=== PATIENT | female | born 2000 | race Caucasian/White ===

== ENCOUNTER 2021-06-16 11:00 | Outpatient (CLI) | payer MEDICAID, SELFPAY ==
--- NOTE | 2021-06-16 11:12 | US_ITS ---
WS: [id number] ULTRASOUND BREAST LEFT TECHNIQUE: Ultrasound left breast focused area of concern. CLINICAL INFORMATION: BREAST DRAINAGE;BREAST MASS/LUMP COMPARISON: None. FINDINGS: Ultrasound left breast 11 to 1:00 position. No evidence of cystic or solid suspicious lesions. A few incidental dilated ducts at about the areola. No suspicious findings at for biopsy. US/US breast LT limited* [id number] IMPRESSION: BI-RADS 2 benign Recommend annual screening mammography age 40
== END 2021-06-16 11:01 | disposition home or self-care (01) ==
LOC: RAD 11:06
PROVIDERS: PCP Nurse Practitioner Family; Visit Provider Family Medicine
DX: N64.52 Nipple discharge (principal); N63.20 Unspecified lump in the left breast, unspecified quadrant
CPT/HCPCS: 76642

== ENCOUNTER 2021-06-24 11:53 | Emergency (ER) | payer MEDICAID, SELFPAY ==
[2021-06-24 12:12] VITALS: BP 139/94; PULSE 114; RESP 19; TEMP 37.6; O2SAT 97; BMI 25.1
--- NOTE | 2021-06-24 12:54 | ECG_ITS ---
[facility] ED Test Date: 2021-06-24 Pat Name: Jessica Mandel Department: Room: Gender: Female World Language Teacher: ADOLPH TORRESB: 2000 Requested By: Irma Hauser Order Number: [id number] Brendan MD: Rae Klein M.D. Measurements Intervals [place] Rate: 102 P: 46 ND: 157 QRS: 46 QRSD: 82 T: 31 QT: 326 QTc: 426 Interpretive Statements SINUS TACHYCARDIA NONSPECIFIC T-WAVE ABNORMALITY ABNORMAL RHYTHM ECG Compared to ECG 10/24/2018 17:57:25 T-wave abnormality now present Sinus rhythm no longer present Electronically Signed On 06-25-2021 18:27:41 CDT by Rae Klein M.D. [id number]
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
[2021-06-24 12:57] VITALS: BP 120/96; PULSE 106; RESP 18; O2SAT 100
[2021-06-24] MEDS: sodium chloride 0.9% 1,000 ML 999 ML IV (13:09)
[2021-06-24 13:24] LABS: Basophils # 0.1 10^3/uL (0.0-0.1); Basophils % 0.5 %; Eosinophils # 0.6 10^3/uL (0.0-0.8); Eosinophils % 5.5 %; Hematocrit 44.2 % (37.0-47.0); Hemoglobin 14.4 g/dL (11.5-15.3); Lymphocytes # 1.2 10^3/uL (1.5-6.5); Mean Corpuscular HGB Conc 32.6 g/dL (30.0-36.0); Mean Corpuscular Hemoglobin 29.5 pg (28.0-34.0); Mean Corpuscular Volume 90.6 fl (81-99); Mean Platelet Volume 11.2 fL (7.4-10.4); Monocytes # 0.6 10^3/uL (0.2-0.9); Monocytes % 5.5 %; Neutrophils % 77.3 %; Nucleated Red Blood Cells % 0 %; Platelet Count 191 10^3/cmm (130-400); Red Blood Count 4.88 10^6/uL (4.1-5.3); White Blood Count 10.5 10^3/uL (4.5-13.0)
[2021-06-24 13:35] LABS: HCG, Serum Qual Negative (Negative)
[2021-06-24] MEDS: iohexol 300 mg/mL 100 mL Btl IV (13:38)
--- NOTE | 2021-06-24 13:42 | CT_ITS ---
WS: [id number] CT ABDOMEN AND PELVIS WITH CONTRAST HISTORY: abdominal pain, N/V TECHNIQUE: Imaging performed of the abdomen and pelvis with IV contrast. Single phase imaging of the abdomen. Coronal and sagittal reformats are submitted. All CT scans at [facility] use at least one of these dose optimization techniques: automated exposure control; mA and/or kV adjustment per patient size (includes targeted exams where dose is matched to clinical indication); or iterativ e reconstruction. IV CONTRAST: Omnipaque 300; 95 mL IV. Oral contrast: No DLP: 1907.52 mGy.cm COMPARISON: None available. Lower thorax: Lung bases are clear. Heart is normal size. No hiatal hernia. Liver/biliary system: Normal size with no intrahepatic dilatation. Gallbladder: Normal. No gallstones or wall thickening. No pericholecystic fluid. Pancreas: Normal size pancreas and pancreatic duct. No adjacent inflammation. Spleen: Spleen is slightly enlarged at 14 cm in length. No parenchymal abnormality or fracture. Adrenal glands: Normal. Right kidney: Normal. Left kidney: Normal. Aorta: Normal. Lymphadenopathy: None. Free fluid: None. GI tract: Prior appendectomy. No obstruction or mucosal thickening. Abdominal wall: Unremarkable abdominal wall. No hernia. Pelvis: No free fluid or adenopathy within the pelvis. Mild fluid distention of the endometrium may b e related to the menstrual cycle. Thick wall 17 mm RIGHT ovarian follicle. Bones: Unremarkable. Very inferior ischial tuberosity is not included on this examination. Otherwise bones are negative. CT/CT abdomen pelvis w con* [id number] IMPRESSION: 1. No acute abdominal or pelvic CT findings. 2. Prior appendectomy. 3. No free fluid or mesenteric hematoma. 4. Mild splenomegaly.
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
[2021-06-24 13:43] LABS: Alanine Aminotransferase 27 U/L (0-33); Albumin Level 4.4 g/dL (3.5-5.2); Alkaline Phosphatase 76 IU/L (35-105); Anion Gap 17.8 (5-19); Aspartate Amino Transferase 17 U/L (0-32); Blood Urea Nitrogen 11 mg/dL (6-20); Calcium 9.1 mg/dL (8.5-10.5); Carbon Dioxide 21 mmol/L (22-29); Chloride 102 mmol/L (98-107); Globulin 2.8 g/dL (1.3-4.6); Glomerular Filtration Rate 157.3 mL/min (90-130); Glucose 97 mg/dL (65-115); Lipase 32 U/L (13-60); Osmolality Calculated 283 mOsm/kg (285-295); Potassium 3.8 mmol/L (3.5-5.1); Sodium 137 mmol/L (136-145); Total Bilirubin 0.6 mg/dL (0.15-1.2); Total Protein 7.2 g/dL (6.6-8.7)
[2021-06-24 14:50] VITALS: BP 107/90; PULSE 98; RESP 16; O2SAT 99
[2021-06-24 15:12] LABS: Add Urine Microscopic? NO; Charge for UA Resulting for Rev
[2021-06-24 15:24] LABS: Bilirubin Urine 1+ (Negative); Blood Urine Neg (Negative); Glucose Urine UA Norm (Normal); Ketones Urine Negative (Negative); Leukocyte Esterase Urine Negative (Negative); Nitrate Urine Negative (Negative); Protein Urine Trace (Negative); Specific Gravity, Urine 1.005 (1.005-1.030); Urine Appearance Clear (CLEAR); Urine Color Yellow (Yellow); Urobilinogen Urine 1 mg/dL (Negative); pH Urine 6.5 (5-7)
[2021-06-24 15:25] LABS: Amphetamines Screen Urine Negative (Negative); Barbiturates Screen Urine Negative (Negative); Benzodiazepines Screen Urine Negative (Negative); Cocaine Screen Urine Negative (Negative); Opiate Screen Urine Negative (Negative); PCP Screen Urine Negative (Negative); THC Screen Urine Positive (Negative)
[2021-06-24 16:05] VITALS: RESP 16
== END 2021-06-24 16:07 | disposition home or self-care (01) ==
PROVIDERS: Emergency Provider Physician Assistant; PCP Nurse Practitioner Family
DX: G89.29 Other chronic pain (principal); M54.2 Cervicalgia; M54.9 Dorsalgia, unspecified; R10.9 Unspecified abdominal pain; R11.2 Nausea with vomiting, unspecified
CPT/HCPCS: 72072; 72100; 72125; 74177; 80053; 80306; 81003; 83690; 84703; 85025; 93005; 96360; 99283; J7030; Q9967

== ENCOUNTER 2021-09-13 14:26 | Emergency (ER) | payer MEDICAID, SELFPAY ==
[2021-09-13 15:07] VITALS: BP 131/89; PULSE 80; RESP 18; TEMP 36.8; O2SAT 99; BMI 28.1
--- NOTE | 2021-09-13 16:28 | ED_ITS ---
HPI - Female Genitourinary General: Chief complaint: Vaginal Bleeding Stated complaint: Vaginal Bleeding, 6 Wks Preg Time Seen by Provider: 09/13/21 16:04 History of Present Illness: HPI Narrative: 20-year-old female who is G2, P1 approximately 6 weeks gestation. She states about 3 days ago she started having vaginal bleeding is gotten progressively worsened. She has a lot of pelvic cramping with it as well she denies any dysuria urgency or frequency. Previous resulted in delivery around 30 to 32 weeks child that went on to be quite healthy. Patient has not had any lightheadedness or dizziness denies any dysuria urgency or frequency denies any medication vomiting times Emesis. MD elicited complaint: vaginal bleeding Onset (ago): day(s) Severity: mild Quality of pain: cramping Consistency: constant Vaginal bleeding: moderate Exacerbating factors: none Relieving factors: none Associated symptoms: Reports vaginal bleeding; Deny abdominal pain, short of breath, fevers/chills, headache(s), nausea, rash, seizures, syncope, vaginal discharge or weakness Treatment prior to arrival: none Patient : Yes Date of Last Menstrual Period: 07/26/21 Review of Systems Const: Denies: fever(s), chills, body aches, change in appetite, fatigue or malaise ENMT: Denies: throat pain, ear or mastoid pain, nasal discharge or nasal congestion Card: Denies: syncope Resp: Denies: dyspnea, productive cough or non-productive cough GI: Denies: abdominal pain or nausea : Denies: vaginal discharge Skin/Breast: Denies: rash or pruritus Neuro: Denies: headache(s) [facility] ED Female Reproductive History: Date of last menstrual period: 07/26/21 Physical Exam Const: COMMON NORMALS: no acute distress GENERAL APPEARANCE: cooperative and comfortable ORIENTATION/CONSCIOUSNESS: Yes awake, Yes oriented to person, Yes oriented to place and Yes oriented to time HENMT: COMMON NORMALS: normocephalic, atraumatic and hearing grossly normal bilaterally HEAD & SCALP: normocephalic and atraumatic Neck/C-Spine: COMMON NORMALS: no JVD Resp: COMMON NORMALS: normal respiratory effort, No retractions, No use of accessory muscles and clear to auscultation bilaterally AUSCULTATION: clear to auscultation bilaterally Cardio: COMMON NORMALS: no JVD, regular rate, regular rhythm and No murmurs present (Cardio) RATE: regular rate RHYTHM: regular rhythm GI: COMMON NORMALS: Soft to palpation and No hepatosplenomegaly present AUSCULTATION: Yes normoactive bowel sounds PALPATION: Yes Soft to palpation, No Tenderness to palpation present (GI), No Guarding due to palpation present (GI) and Yes No hepatosplenomegaly present : SPECULUM EXAM - VAGINA: Yes vaginal bleeding OB/EXTERNAL & SPECULUM: vaginal bleeding Extremity: COMMON NORMALS: normal to inspection, capillary refill normal, no clubbing, cyanosis or edema, no calf tenderness and no pedal edema Neuro: SENSORIUM/ORIENTATION: Yes oriented to person, Yes oriented to place and Yes oriented to time Skin: COMMON NORMALS: no rashes or lesions noted GENERAL SKIN EXAM: no rashes or lesions noted Course Vital Signs: Vital signs: Vital Signs Temperature 98.2 F 09/13/21 15:07 Pulse Rate 80 09/13/21 15:07 Respiratory Rate 18 09/13/21 15:07 Blood Pressure 131/89 09/13/21 15:07 Pulse Oximetry 99 09/13/21 15:07 MDM - Female MDM Narrative: Medical decision making narrative: Serum quantitative beta-hCG is less than 1. Discussed with the patient suspect she was not . Given the usual breakdown of beta-hCG over time after a miscarriage either she was very very early and miscarried sometime ago or more likely was not at all. She states she had several positive test 1 week ago which does not correspond well with her quantitative beta-hCG today. Recommend she follow- up with her primary care doctor for now just observe if bleeding worsens or continues can return if needed. Lab Data: Labs: Lab Results 09/13/21 09/13/21 09/13/21 16:45 16:45 16:45 WBC 11.5 10^3/uL 10^3 /uL (4.5-13.0) RBC 4.70 10^6/uL 10^6 /uL (4.1-5.3) Hgb 14.3 g/dL g/dL (11.5-15.3) Hct 43.4 % % (37.0-47.0) MCV 92.3 fl fl (81-99) MCH 30.4 pg pg (28.0-34.0) MCHC 32.9 g/dL g/dL (30.0-36.0) RDW 12.2 % % (12.1-15.1) Plt Count 271 10^3/cmm 10^3 /cmm (130-400) MPV 10.6 fL H fL (7.4-10.4) Neut % (Auto) 56.1 % % Lymph % (Auto) 30.0 % % Haralson % (Auto) 7.5 % % Eos % (Auto) 5.5 % % Baso % (Auto) 0.6 % % Neut # (Auto) 6.48 10^3/uL 10^3 /uL (1.8-8.0) Lymph # (Auto) 3.5 10^3/uL 10^3/ uL (1.5-6.5) [place]on # (Auto) 0.9 10^3/uL 10^3/ uL (0.2-0.9) Eos # (Auto) 0.6 10^3/uL 10^3/ uL (0.0-0.8) Baso # (Auto) 0.1 10^3/uL 10^3/ uL (0.0-0.1) Nucleated RBC % (a uto) 0 % % Nucleated RBCs # 0.0 /100WBC /100W BC Sodium 138 mmol/L mmol/L (136-145) Potassium 3.9 mmol/L mmol/L (3.5-5.1) Chloride 101 mmol/L mmol/L (98-107) Carbon Dioxide 23 mmol/L mmol/L (22-29) Anion Gap 17.9 (5-19) BUN 11 mg/dL mg/dL (6-20) Creatinine 0.5 mg/dL mg/dL (0.5-0.9) GFR Calculation 157.3 mL/min H mL /min (90-130) Glucose 78 mg/dL mg/dL (65-115) Calculated Osmolal ity 284 mOsm/kg L mOs m/kg (285-295) Calcium 9.9 mg/dL mg/dL (8.5-10.5) Total Bilirubin 0.2 mg/dL mg/dL (0.15-1.2) AST 18 U/L U/L (0-32) ALT 20 U/L U/L (0-33) Alkaline Phosphata se 72 IU/L IU/L (35-105) Total Protein 8.2 g/dL g/dL (6.6-8.7) Albumin 4.6 g/dL g/dL (3.5-5.2) Globulin 3.6 g/dL g/dL (1.3-4.6) Ser , Cody i-Qnt 0.83 mIU/mL mIU/m L Urine Color Urine Appearance Urine pH Ur Specific Gravit y Urine Protein Urine Glucose (UA) Urine Ketones Urine Blood Urine Nitrate Urine Bilirubin Urine Urobilinogen Ur Leukocyte Shelby ase Urine RBC Urine WBC Ur Squamous Epith Cells Amorphous Sediment Urine Bacteria Rho(D) Type Positive 09/13/21 17:30 WBC RBC Hgb Hct MCV MCH MCHC RDW Plt Count MPV Neut % (Auto) Lymph % (Auto) [place] % (Auto) Eos % (Auto) Baso % (Auto) Neut # (Auto) Lymph # (Auto) [place] # (Auto) Eos # (Auto) Baso # (Auto) Nucleated RBC % (a uto) Nucleated RBCs # Sodium Potassium Chloride Carbon Dioxide Anion Gap BUN Creatinine GFR Calculation Glucose Calculated Osmolal ity Calcium Total Bilirubin AST ALT Alkaline Phosphata se Total Protein Albumin Globulin Ser , Cody i-Qnt Urine Color Dark yellow (Yellow) Urine Appearance Clear (CLEAR) Urine pH 6 (5-7) Ur Specific Gravit y 1.020 (1.005-1.030) Urine Protein Neg (Negative) Urine Glucose (UA) Norm (Normal) Urine Ketones Negative (Negative) Urine Blood 3+ H (Negative) Urine Nitrate Negative (Negative) Urine Bilirubin Neg (Negative) Urine Urobilinogen 1 mg/dL H mg/dL (Negative) Ur Leukocyte Shelby ase Negative (Negative) Urine RBC 40-50 /hpf H /hpf (0-2) Urine WBC Rare /hpf /hpf (0-5) Ur Squamous Epith Cells Rare /hpf /hpf (0-5) Amorphous Sediment Not Reportable Urine Bacteria 1+ /hpf H /hpf (NONE) Rho(D) Type Discharge Plan Discharge Patient Disposition: Home Clinical Impression: Menometrorrhagia Condition: Stable Prescriptions: No Action Tylenol Extra Strength 500 mg Tablet 1,000 - 1,500 mg PO Q6H PRN (Reason: Pain) RF: 0 Motion Sickness 25 mg Tablet 25 mg PO PRN RF: 0 diclofenac sodium 50 mg tablet,delayed release (DR/EC) 50 mg PO Q12H PRN (Reason: pain) Qty: 20 RF: 0 Zofran 4 mg tablet 4 mg PO Q6H PRN (Reason: nausea and vomiting) Qty: 14 RF: 0 Discharge Orders: Discharge ED (Routine); Ordered 09/13/21 Ordered By: Reuben Birch Referrals: Melissa Jaquez FNP [Primary Care Provider] - Discharge Diet: Usual diet Discharge Activity: Resume usual activity Patient Instructions: Opioid Safety Activity Restrictions/Additional Instructions: Recheck a hemoglobin is her primary care doctor in 2 days. Coding Level of Care Code ED Freight Sorter for Deedee Dawson
--- NOTE | 2021-09-13 16:35 | USR_ITS ---
PROCEDURE INFORMATION: Exam: US Pelvis, Transvaginal Exam date and time: 09/13/2021 4:35 PM Age: 20 years old Clinical indication: Other: Thinks she is and bleeding; Additional info: Confiem intrauterine preg TECHNIQUE: Imaging protocol: Real-time transvaginal pelvic ultrasound with image documentation. Transvaginal imaging was used for better evaluation of the endometrium, adnexa, and/or cervix. COMPARISON: US OB >14 Weeks [id number] 07/17/2019 10:55 AM FINDINGS: Uterus: The uterus measures 8.3 x 6.1 cm. No intrauterine gestation is seen. Negative for uterine mass. The endometrial stripe measures 7 mm in thickness. Multiple nabothian cysts are noted in the cervix. Right adnexa: The right ovary measures 3.4 x 1.5 x 2.2 cm No suspicious mass. Normal ovarian blood flow. Left adnexa: The left ovary measures 3.7 x 1.9 x 2.3 cm. No suspicious mass. Normal ovarian blood flow. Intraperitoneal space: Trace pelvic free fluid, likely physiologic. US/US transvaginal [id number] IMPRESSION: 1. No evidence of intrauterine . Findings could relate to early gestational age in the setting of a positive test. Could consider trending beta hCG and/or repeat ultrasound to evaluate for viability. 2. No acute sonographic abnormalities of the pelvis. Radiation Dose CTDIVOL = (mGy): DLP = (mGy-cm)
[2021-09-13 16:51] LABS: Basophils # 0.1 10^3/uL (0.0-0.1); Basophils % 0.6 %; Eosinophils # 0.6 10^3/uL (0.0-0.8); Eosinophils % 5.5 %; Hematocrit 43.4 % (37.0-47.0); Hemoglobin 14.3 g/dL (11.5-15.3); Lymphocytes # 3.5 10^3/uL (1.5-6.5); Mean Corpuscular HGB Conc 32.9 g/dL (30.0-36.0); Mean Corpuscular Hemoglobin 30.4 pg (28.0-34.0); Mean Corpuscular Volume 92.3 fl (81-99); Mean Platelet Volume 10.6 fL (7.4-10.4); Monocytes # 0.9 10^3/uL (0.2-0.9); Monocytes % 7.5 %; Neutrophils # 6.48 10^3/uL (1.8-8.0); Neutrophils % 56.1 %; Nucleated Red Blood Cells % 0 %; Platelet Count 271 10^3/cmm (130-400); Red Cell Distribution Width 12.2 % (12.1-15.1); White Blood Count 11.5 10^3/uL (4.5-13.0)
[2021-09-13 17:20] LABS: HCG Quantitative 0.83 mIU/mL
[2021-09-13 17:41] LABS: Alanine Aminotransferase 20 U/L (0-33); Albumin Level 4.6 g/dL (3.5-5.2); Alkaline Phosphatase 72 IU/L (35-105); Blood Urea Nitrogen 11 mg/dL (6-20); Calcium 9.9 mg/dL (8.5-10.5); Carbon Dioxide 23 mmol/L (22-29); Chloride 101 mmol/L (98-107); Globulin 3.6 g/dL (1.3-4.6); Glomerular Filtration Rate 157.3 mL/min (90-130); Glucose 78 mg/dL (65-115); Osmolality Calculated 284 mOsm/kg (285-295); Sodium 138 mmol/L (136-145); Total Bilirubin 0.2 mg/dL (0.15-1.2); Total Protein 8.2 g/dL (6.6-8.7)
[2021-09-13 17:43] LABS: Anion Gap 17.9 (5-19); Aspartate Amino Transferase 18 U/L (0-32); Potassium 3.9 mmol/L (3.5-5.1)
[2021-09-13 18:05] LABS: Urine Appearance Clear (CLEAR); Urine Color Dark Yellow (Yellow); pH Urine 6 (5-7)
[2021-09-13 18:06] LABS: Add Urine Microscopic? YES; Bacteria Urine 1+ /hpf; Bilirubin Urine Neg (Negative); Blood Urine 3+ (Negative); Glucose Urine UA Norm (Normal); Ketones Urine Negative (Negative); Leukocyte Esterase Urine Negative (Negative); Nitrate Urine Negative (Negative); Protein Urine Neg (Negative); RBC Urine 40-50 /hpf (0-2); Squamous Epithelial Cell Urine RARE /hpf (0-5); Urobilinogen Urine 1 mg/dL (Negative); WBC Urine RARE /hpf (0-5)
[2021-09-13 18:07] LABS: Add Urine Culture? Yes
== END 2021-09-13 18:04 | disposition home or self-care (01) ==
PROVIDERS: Physician Assistant; Emergency Provider Family Medicine; PCP Nurse Practitioner Family
DX: N92.1 Excessive and frequent menstruation with irregular cycle (principal)
CPT/HCPCS: 76830; 80053; 81001; 84702; 85025; 87086; 93976; 99283

== ENCOUNTER 2022-03-21 09:17 | Emergency (ER) | payer OTHER, SELFPAY ==
[2022-03-21 09:22] VITALS: BP 134/94; PULSE 110; RESP 16; O2SAT 99; BMI 29.9
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
[2022-03-21 09:57] VITALS: BP 134/94; O2SAT 98
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
[2022-03-21 10:30] VITALS: BP 116/65; PULSE 71; RESP 17; O2SAT 97
[2022-03-21 11:20] VITALS: BP 100/79; PULSE 90; RESP 14; O2SAT 98
[2022-03-21 11:21] VITALS: BP 100/79; PULSE 90; RESP 14; O2SAT 98
== END 2022-03-21 11:20 | disposition home or self-care (01) ==
PROVIDERS: Emergency Provider Physician Assistant; PCP Nurse Practitioner Family
DX: O9A.212 Injury, poisoning and certain other consequences of external causes complicating pregnancy, second trimester (principal); S13.9XXA Sprain of joints and ligaments of unspecified parts of neck, initial encounter; S29.012A Strain of muscle and tendon of back wall of thorax, initial encounter; V89.2XXA Person injured in unspecified motor-vehicle accident, traffic, initial encounter; Y92.410 Unspecified street and highway as the place of occurrence of the external cause; Z3A.24 24 weeks gestation of pregnancy
CPT/HCPCS: 72040; 72072; 72125; 76805; 99283

== ENCOUNTER 2022-04-18 14:00 | Outpatient (CLI) | payer OTHER, SELFPAY ==
[2022-04-18] VITALS (8 sets, daily range): BP systolic 107–129; BP diastolic 55–77; PULSE 90–116; TEMP 36.2; BMI 30.2
--- NOTE | 2022-04-18 14:43 | US_ITS ---
WS: [id number] Transvaginal obstetrical ultrasound. HISTORY: Evaluate cervical length. Transvaginal imaging is submitted. The cervical length is normal at 4.2 cm. There is no insufficiency or cervical funneling. Study was limited to the cervix. US/US OB transvaginal [id number] IMPRESSION: No cervical insufficiency.
[2022-04-18] MEDS: lactated ringers 1,000 ML 999 ML IV (15:03)
[2022-04-18 15:29] LABS: Actim Prom Negative; Urine Appearance Hazy (CLEAR); Urine Color Yellow (Yellow)
[2022-04-18 15:30] LABS: Bilirubin Urine Neg (Negative); Blood Urine Neg (Negative); Glucose Urine UA Norm (Normal); Ketones Urine 1+ (Negative); Leukocyte Esterase Urine Negative (Negative); Nitrate Urine Negative (Negative); Protein Urine Neg (Negative); Specific Gravity, Urine 1.015 (1.005-1.030); Urobilinogen Urine Norm (Negative); pH Urine 7 (5-7)
[2022-04-18 15:50] LABS: Add Urine Microscopic? YES
[2022-04-18 15:55] LABS: Mucus Urine 3+ /hpf
[2022-04-18 15:56] LABS: Bacteria Urine 2+ /hpf; RBC Urine 0-4 /hpf (0-2)
[2022-04-18 15:57] LABS: Add Urine Culture? No; Amorphous Sediment Urine 3+ /hpf; WBC Urine 0-4 /hpf (0-5)
== END 2022-04-18 16:34 | disposition home or self-care (01) ==
LOC: OPOB 14:07 → OBGYN 14:08
PROVIDERS: PCP Nurse Practitioner Family; Visit Provider Family Medicine
DX: O26.899 Other specified pregnancy related conditions, unspecified trimester (principal); Z3A.00 Weeks of gestation of pregnancy not specified; R10.9 Unspecified abdominal pain; M54.9 Dorsalgia, unspecified
CPT/HCPCS: 76817; 81001; 84112; 99211

== ENCOUNTER 2022-05-11 11:41 | Outpatient (CLI) | payer MEDICAID, SELFPAY ==
[2022-05-11 11:30] VITALS: BMI 29.7
[2022-05-11 11:52] VITALS: BP 112/67; PULSE 98; TEMP 36.3
[2022-05-11 12:07] VITALS: BP 94/55; PULSE 90
[2022-05-11 12:21] LABS: Actim Prom Negative
[2022-05-11 12:22] VITALS: BP 110/67; PULSE 92
[2022-05-11 12:26] LABS: Bilirubin Urine Neg (Negative); Blood Urine Neg (Negative); Glucose Urine UA Norm (Normal); Ketones Urine Negative (Negative); Leukocyte Esterase Urine Negative (Negative); Nitrate Urine Negative (Negative); Protein Urine Neg (Negative); Specific Gravity, Urine 1.005 (1.005-1.030); Urine Appearance Clear (CLEAR); Urine Color Yellow (Yellow); Urobilinogen Urine Norm (Negative); pH Urine 7 (5-7)
[2022-05-11 12:27] LABS: Add Urine Culture? Yes; Bacteria Urine 2+ /hpf; Hyaline Casts Urine 0-4 /lpf; Mucus Urine 2+ /hpf; RBC Urine 0-4 /hpf (0-2); WBC Urine 0-4 /hpf (0-5)
[2022-05-11 12:46] VITALS: BP 110/67; PULSE 92; RESP 16; TEMP 36.3
== END 2022-05-11 12:40 | disposition home or self-care (01) ==
LOC: OPOB 11:42 → OBGYN 11:43
PROVIDERS: PCP Nurse Practitioner Family; Visit Provider Family Medicine
DX: O26.899 Other specified pregnancy related conditions, unspecified trimester (principal); Z3A.00 Weeks of gestation of pregnancy not specified; N89.8 Other specified noninflammatory disorders of vagina
CPT/HCPCS: 59025; 81001; 83986; 84112; 87086; 99211

== ENCOUNTER 2022-05-17 21:52 | Outpatient (CLI) | payer MEDICAID, SELFPAY ==
[2022-05-17 22:27] VITALS: BP 93/52; PULSE 96
[2022-05-17 22:30] VITALS: RESP 16
[2022-05-17 22:41] VITALS: BP 94/59; PULSE 96
[2022-05-17] MEDS: terbutaline 1 mg/mL INJ 0.25 MG SUBCUT (22:46)
[2022-05-17 22:57] VITALS: BP 111/65; PULSE 103
[2022-05-17 22:58] VITALS: BMI 30.8
[2022-05-17] MEDS: hyDROXYzine 25 mg Capsule 50 MG PO (23:25)
[2022-05-17] MEDS: acetaminophen 500 mg Tablet 1000 MG PO (23:25)
[2022-05-17 23:33] LABS: Add Urine Culture? Yes; Amorphous Sediment Urine 2+ /hpf; Bacteria Urine 4+ /hpf; Bilirubin Urine Neg (Negative); Blood Urine Neg (Negative); Glucose Urine UA Norm (Normal); Ketones Urine Negative (Negative); Leukocyte Esterase Urine Trace (Negative); Mucus Urine TRACE /hpf; Nitrate Urine Negative (Negative); Protein Urine Neg (Negative); RBC Urine 0-4 /hpf (0-2); Specific Gravity, Urine 1.015 (1.005-1.030); Urine Appearance SL Hazy (CLEAR); Urine Color Yellow (Yellow); Urobilinogen Urine Norm (Negative); pH Urine 6 (5-7)
[2022-05-17 23:35] LABS: Amphetamines Screen Urine Negative (Negative); Barbiturates Screen Urine Negative (Negative); Benzodiazepines Screen Urine Negative (Negative); Cocaine Screen Urine Negative (Negative); Opiate Screen Urine Negative (Negative); PCP Screen Urine Negative (Negative); THC Screen Urine Negative (Negative)
== END 2022-05-17 23:27 | disposition home or self-care (01) ==
LOC: OPOB 22:02 → OBGYN 23:11
PROVIDERS: PCP Nurse Practitioner Family; Visit Provider Family Medicine
DX: O26.899 Other specified pregnancy related conditions, unspecified trimester (principal); Z3A.00 Weeks of gestation of pregnancy not specified; R10.9 Unspecified abdominal pain
CPT/HCPCS: 59025; 80306; 81001; 87086; 99211; J3105

== ENCOUNTER 2022-06-03 15:24 | Outpatient (CLI) | payer MEDICAID, SELFPAY ==
--- NOTE | 2022-06-03 | US_ITS ---
WS: [id number] LIMITED OBSTETRICAL ULTRASOUND HISTORY: GROWTH RETARDATION COMPARISON: 04/18/2022, 03/21/2022 Presentation: Breech Cervix: Closed and normal length. Placenta: Anterior, no previa or abruption. Grade: 1 HEART: FHR of 131 BPM. measurements: BPD = 8.1 cm = 32w5d; 26 percentile HC = 29.6 cm = 32w5d; 8thpercentile AC = 28.8 cm = 32w6d; 39th percentile FL = 6.5 cm = 33w5d; 49th percentile NEEMA: 16.1 cm EFW: 2111 g; 53rd percentile %. AGA by ultrasound: 33w0d NISHA by ultrasound: 07/22/2022 Measurements are internally concordant. No prior ultrasound available to evaluate for interval approp riate growth. US/US OB limited [id number] IMPRESSION: 1. Single intrauterine gestation of 33 weeks 0 days with an EDC of 07/22/2022. 2. Percentiles an estimated weight are based upon the provided LMP. 3. No prior ultrasound to evaluate for interval appropriate growth. 4. Head circumference at the 8th percentile. 5. Normal amniotic fluid index.
== END 2022-06-03 15:25 | disposition home or self-care (01) ==
LOC: RAD 15:26
PROVIDERS: PCP Nurse Practitioner Family; Visit Provider Family Medicine
DX: O36.5990 Maternal care for other known or suspected poor fetal growth, unspecified trimester, not applicable or unspecified (principal)
CPT/HCPCS: 76815

== ENCOUNTER 2022-06-27 15:09 | Outpatient (CLI) | payer MEDICAID, SELFPAY ==
[2022-06-27 15:20] VITALS: BP 129/81; PULSE 120
[2022-06-27 15:21] VITALS: TEMP 36.5
[2022-06-27 16:13] LABS: Actim Prom Negative
[2022-06-27 16:14] VITALS: BP 113/65; PULSE 106
--- NOTE | 2022-06-27 16:15 | PC.NURSE ---
Pt reports being unsure whether she is having contractions or not. She reports with her last baby her water broke at 31 weeks and that she didn't know she was having contractions. Educated pt that contractions may start in the lower back and wrap around to the front of the abdomen, with contractions the abdomen will tighten and become firm and release. Educated pt on how to time contractions. Pt reports she has been having lower back pain and abdominal tightening, but does not know how often it occurs. Educated pt about the monitor and that the TOCO with car pick up driver contractions if she is having any. Pt reports that she had not felt 10 kicks in 2 hours. Pt asked if we could tell on the monitor if her baby was moving. Educated pt that the monitor does not show movement but that occasionally we can hear baby move on the US. Educated pt that her baby's heart looked great and that her baby was reactive. Explained that that meant that baby was well oxygenated and was not showing any signs of distress. Pt asked why she couldn't feel her baby move all the time. She states that her baby moves more in the night time than the day time. Explained that we recommend drinking a large glass of cold water and lying down on your left side in a quiet space with no distractions and concentrate on feeling baby move.
== END 2022-06-27 16:33 | disposition home or self-care (01) ==
LOC: OPOB 15:09 → OBGYN 15:10
PROVIDERS: PCP Nurse Practitioner Family; Visit Provider Family Medicine
DX: O36.8190 Decreased fetal movements, unspecified trimester, not applicable or unspecified (principal); Z3A.00 Weeks of gestation of pregnancy not specified
CPT/HCPCS: 84112

== ENCOUNTER 2022-07-12 06:11 | Inpatient (IN) | payer MEDICAID, SELFPAY ==
[2022-07-11] VITALS (9 sets, daily range): BP systolic 100–130; BP diastolic 58–79; PULSE 95–109; RESP 16; TEMP 35.7; BMI 31.3
[2022-07-11 21:33] LABS: Basophils # 0.1 10^3/uL (0.0-0.1); Basophils % 0.5 %; Eosinophils # 0.7 10^3/uL (0.0-0.8); Hematocrit 34.4 % (37.0-47.0); Hemoglobin 11.1 g/dL (11.5-15.3); Lymphocytes # 4.4 10^3/uL (0.8-4.8); Lymphocytes % 24.2 %; Mean Corpuscular HGB Conc 32.3 g/dL (30.0-36.0); Mean Corpuscular Hemoglobin 30.2 pg (28.0-34.0); Mean Corpuscular Volume 93.7 fl (81-99); Mean Platelet Volume 11.8 fL (7.4-10.4); Monocytes # 1.1 10^3/uL (0.2-0.9); Neutrophils # 11.72 10^3/uL (1.8-7.7); Neutrophils % 63.8 %; Nucleated Red Blood Cells % 0 %; Platelet Count 236 10^3/cmm (130-400); Red Blood Count 3.67 10^6/uL (4.1-5.3); Red Cell Distribution Width 13.5 % (12.1-15.1); White Blood Count 18.3 10^3/uL (4.0-10.0)
[2022-07-11] MEDS: lactated ringers 1,000 ML 999 ML IV (23:10)
[2022-07-12] VITALS (126 sets, daily range): BP systolic 92–129; BP diastolic 50–87; PULSE 47–112; TEMP 36.1–36.7; O2SAT 93–98
[2022-07-12] MEDS: lactated ringers 1,000 ML 999 ML IV (00:12)
--- NOTE | 2022-07-12 00:35 | ANES.PREANE2 ---
Pre-Anesthetic Assessment Height/Weight: Height 1.7 m Weight 90.718 kg Temp Pulse Resp BP O2 Del Method 96.3 F L 93 16 124/60 07/11/22 20:39 07/12/22 00:23 07/11/22 22:23 07/12/22 00:23 07/11/22 22:23 Preop Diagnosis: labor epidural Familial anesthetic complications: none Was Beta Fartun taken within 24 hours: N/A Was Clonidine taken within 24 hours: N/A Last Intake: 20:00 Social Tobacco and No alcohol 0.5 pack(s) per day 7 pack years Exam alert, oriented x 3, clear to auscultation bilaterally and regular rate & rhythm Airway Submandibular: within normal limits Cervical ROM: within normal limits Mallampati: Class I Dentition: full (tongue ring) Pulmonary None reported CV/HEM None reported None reported Hepatic None reported GI Gastroesophageal Reflux Disease () Metabolic None reported Musc/skel Lower Back Pain (no injury) Neuropsych Anxiety, Bipolar and Depression Anesthetic Plan ASA status: 2 Anesthesia: Regional (specify below) (epidural) Medications/Allergies Home Medications Medication Instructions Recorded Confirmed Last Taken Type No Known Home Medications 05/17/22 07/11/22 Unknown History Allergies Allergy/AdvReac Type Severity Reaction Status Date / Time No Known Allergies Allergy Verified 07/11/22 23:11 Current Medications Generic Name Dose Route Start Last Admin Trade Name Freq PRN Reason Stop Dose Admin Lactated Ringer's 1,000 mls @ 999 mls/hr 07/11/22 22:25 07/12/22 00:12 Lactated Ringers IV 999 mls/hr .Q1H1M PRN Administration See label comments PFSH Anesthesia Female Reproductive History Date of last menstrual period: 07/26/21 : 2 Data Anesthesia : 07/11/22 20:50 Short CBC 07/11/22 Range/Units 20:50 WBC 18.3 H (4.0-10.0) 10^3/uL Hgb 11.1 L (11.5-15.3) g/dL Hct 34.4 L (37.0-47.0) % MCV 93.7 (81-99) fl Plt Count 236 (130-400) 10^3/cmm Neut % (Auto) 63.8 % Neut # (Auto) 11.72 H (1.8-7.7) 10^3/uL Cardiac Studies: No Data to Display
[2022-07-12] MEDS: dextrose 5%-lactated ringers 1,000 ML 125 ML IV ×2 (01:15→09:28)
--- NOTE | 2022-07-12 01:23 | ANES.PROC ---
Anesthesia Procedures Procedure/Date: 07/12/22 Epidural: Time Out Performed: Yes Consents Signed: Procedure Consent and NPO Consent Consent: requested by attending/covering physician, from patient, risks and benefits reviewed and patient agrees to proceed Lumbar Level: L3-L4 Epidural position: sitting Epidural procedure: sterile prep of area (betadine), 1% lidocaine to numb the area (3ml), 18 g needle, negative for paresthesia passed, neg for paresthesia, test dose given (2% lidocaine PF with epi 1:200,000 PF 3ml neg and 2ml given), 0.2% Ropivacaine bolus ml (5ml), placed PCEA, no systemic response, sterile dressing applied, L.U.D. no apparent complications and 0.2% Ropiavacaine @ mls/hr (13ml/hr)
[2022-07-12] MEDS: oxytocin 30 UNIT/500 ML BAG IV (01:47)
[2022-07-12] MEDS: ondansetron 2 mg/ML SDV 2 mL 4 MG IVP (14:13)
[2022-07-12] MEDS: ibuprofen 800 mg tablet PO ×2 (15:09→20:04)
[2022-07-12] MEDS: acetaminophen 325 mg Tablet 650 MG PO ×2 (16:36→22:41)
[2022-07-12] MEDS: docusate sodium 100 mg Capsule PO (17:35)
--- NOTE | 2022-07-12 17:56 | PM.OPHPUD ---
Labor & Delivery H&P Update Date of Procedure: July 12, 2022 Date H&P Performed: 07/06/22 Admission Diagnosis: Preop diagnosis: labor
--- NOTE | 2022-07-12 17:57 | P.PCNOB_ITS ---
Delivery Note: Date of delivery: July 12, 2022 Estimated blood loss (mL): 150 Pre-Delivery Course: This is a 21-year-old -1-0-1 who initially had care starting in [place]. She transferred care to [facility] at 25 weeks gestation. She is blood type O+ antibody negative, hepatitis B surface antigen nonreactive, hepatitis C antibody nonreactive, HIV nonreactive, rubella nonimmune, GC chlamydia negative, GBS negative, she failed the 1 hour glucose tolerance test at 152. She refused the 3-hour glucose tolerance test and chose instead to do 4 times daily Accu-Cheks. She was therefore considered diet-controlled gestational diabetes mellitus. She would not bring her blood sugar logs to clinic but would report normal sugars. Her first delivery was 32 weeks premature but she refused Milena injections for this . She also reported that she was told that the baby was growing small earlier in the but her follow-up growth ultrasound was within normal limits. She did continue to smoke during the . Delivery: This is a 21-year-old G2, P1 at 39 weeks 1 day gestation who was admitted for an elective induction. Cervix was favorable and she was started on Pitocin. She received an epidural for pain management. She had artificial rupture of membranes with clear fluid. She had a normal spontaneous vaginal delivery of a viable female infant weight 6 pounds 9 ounces, Apgars 6 7 and 9. The was delivered precipitously. Her head was out as soon as I entered the room and I was unable to put on gloves. The was delivered atraumatically with bulb suction of the mouth and nares at delivery. The infant was placed on the mother's chest. The cord was clamped and cut. The placenta was delivered grossly intact and normal to inspection. There were no lacerations. Coding Level of Care Code Acute Exchange Consultant for Deedee Dawson
[2022-07-12] MEDS: benzocaine-menthol 78 gm Canister 1 SPRAY TOPICAL (19:24)
[2022-07-13] VITALS (7 sets, daily range): BP systolic 99–129; BP diastolic 61–81; PULSE 76–100; RESP 17–18; TEMP 35.7–36.9; O2SAT 99
[2022-07-13 00:06] LABS: Hematocrit 29.9 % (37.0-47.0); Hemoglobin 9.8 g/dL (11.5-15.3); Mean Corpuscular HGB Conc 32.8 g/dL (30.0-36.0); Mean Corpuscular Hemoglobin 30.8 pg (28.0-34.0); Platelet Count 196 10^3/cmm (130-400); Red Blood Count 3.18 10^6/uL (4.1-5.3); Red Cell Distribution Width 13.4 % (12.1-15.1); White Blood Count 19.4 10^3/uL (4.0-10.0)
[2022-07-13] MEDS: alum-mag-hydroxide-sime 30 mL UDC PO (01:41)
--- NOTE | 2022-07-13 08:29 | ANE.PACU2 ---
Inpatient post-anesthesia follow up: Airway intact: Yes Vital signs: Temperature 96.3 F Pulse Rate 77 Respiratory Rate 16 Blood Pressure 106/67 Pulse Oximetry 96 Oxygen Delivery Me thod Room Air Oxygen Flow Rate Fraction of Inspir ed Oxygen Hydration adequate: Yes Nausea and vomiting: No Pain level: 2 Mental status: Baseline
[2022-07-13] MEDS: docusate sodium 100 mg Capsule PO (10:15)
[2022-07-13] MEDS: prenatal vitamin Capsule 1 CAP PO (10:15)
[2022-07-13] MEDS: ibuprofen 800 mg tablet PO ×2 (10:16→14:36)
--- NOTE | 2022-07-13 17:29 | PM.DCS ---
Discharge Providers Date of Admission: 07/12/22 06:11 Date of Discharge: July 13, 2022 Attending Provider at Admission: Carolann Gusman MD Attending Provider at Discharge: Carolann Gusman MD Primary Care Provider: Melissa Jaquez Reason for Visit Reason for Visit: IOL Hospital Course Hospital Course This is a 21-year-old G2 now P2 who was admitted for an elective induction at 39 weeks 1 day gestation. She had a normal spontaneous vaginal delivery of a viable female . Mother did well after delivery. She was ambulating, tolerating a regular diet, had average vaginal bleeding and was requesting discharge home Physical Exam Narrative: Alert and oriented, sitting up alert and oriented, sitting up in bed, heart regular rate and rhythm, lungs clear to auscultation bilaterally, abdomen soft nontender, fundus firm U- 2, extremities have no calf tenderness. Urinary Catheter Management: Lambert Latex: Cath Placed During This Visit: yes, but has since been removed by the nurse Reason for Continuing Indwelling Catheter: Not indwelling catheter Urinary Catheter Date of Insertion: 07/12/22 Urinary Catheter Time of Insertion: 01:20 Date Urinary Catheter Removed: 07/12/22 Time Urinary Catheter Discontinued: 12:00 Discharge Data Studies Completed and Pending Laboratory Results WBC 19.4 10^3/uL (4.0-10.0) H 07/12/22 23:29 RBC 3.18 10^6/uL (4.1-5.3) L 07/12/22 23:29 Hgb 9.8 g/dL (11.5-15.3) L 07/12/22 23:29 Hct 29.9 % (37.0-47.0) L 07/12/22 23:29 MCV 94.0 fl (81-99) 07/12/22 23:29 MCH 30.8 pg (28.0-34.0) 07/12/22 23:29 MCHC 32.8 g/dL (30.0-36.0) 07/12/22 23:29 RDW 13.4 % (12.1-15.1) 07/12/22 23:29 Plt Count 196 10^3/cmm (130-400) 07/12/22 23:29 MPV 12.0 fL (7.4-10.4) H 07/12/22 23:29 Neut % (Auto) 63.8 % 07/11/22 20:50 Lymph % (Auto) 24.2 % 07/11/22 20:50 [place] % (Auto) 6.0 % 07/11/22 20:50 Eos % (Auto) 4.0 % 07/11/22 20:50 Baso % (Auto) 0.5 % 07/11/22 20:50 Neut # (Auto) 11.72 10^3/uL (1.8-7.7) H 07/11/22 20:50 Lymph # (Auto) 4.4 10^3/uL (0.8-4.8) 07/11/22 20:50 [place] # (Auto) 1.1 10^3/uL (0.2-0.9) H 07/11/22 20:50 Eos # (Auto) 0.7 10^3/uL (0.0-0.8) 07/11/22 20:50 Baso # (Auto) 0.1 10^3/uL (0.0-0.1) 07/11/22 20:50 Nucleated RBC % (auto) 0 % 07/11/22 20:50 Nucleated RBCs # 0.0 /100WBC 07/11/22 20:50 Vitals Last Vital Signs Temp 96.3 F L 07/13/22 04:32 Pulse 93 07/13/22 16:00 Resp 18 07/13/22 16:00 BP 129/81 07/13/22 16:00 Pulse Ox 99 07/13/22 16:00 O2 Del Method 07/11/22 22:23 Discharge Plan Discharge Patient Disposition: Home Condition: Stable Prescriptions: No Action No Known Home Medications Discharge Orders: Discharge Order (Routine); Ordered 07/13/22 Ordered By: Carolann Gusman Referrals: Carolann Gusman MD [Physician] - 1 month Discharge Diet: Usual diet Discharge Activity: Limit activity as instructed Patient Instructions: Opioid Safety Activity Restrictions/Additional Instructions: nothing per vagina for 6 weeks Discharge Attestations Time Spent in Discharge Care*: less than 30 min Quality Metrics Clinical Quality Measures [ No reported AMI, CVA or VTE this stay] Coding Level of Care Code Acute Chg FW DC note
== END 2022-07-13 19:50 | disposition home or self-care (01) | DRG 807 ==
LOC: OPOB 06:12 → OBGYN 06:12
PROVIDERS: Admitting Provider Family Medicine; PCP Nurse Practitioner Family; Visit Provider Family Medicine
DX: O24.420 Gestational diabetes mellitus in childbirth, diet controlled (principal); Z37.0 Single live birth; O99.334 Smoking (tobacco) complicating childbirth; F17.210 Nicotine dependence, cigarettes, uncomplicated; O62.3 Precipitate labor; Z87.51 Personal history of pre-term labor; Z3A.39 39 weeks gestation of pregnancy
CPT/HCPCS: 36415; 51702; 59025; 59409; 85025; 85027; J2405; J2795

== ENCOUNTER 2023-01-06 15:17 | Outpatient (CLI) | payer MEDICAID, SELFPAY ==
--- NOTE | 2023-01-06 15:32 | XR_ITS ---
WS: [email or web address] XR cervical spine 4-5V 61200 REASON FOR EXAM: NECK PAIN FINDINGS: Mild straightening of the normal lordosis of the cervical spine. Normal odontoid and normal vertebral bodies. Intervertebral disc spaces are relatively well-preserved. Facet joints are normal. 1 to 1.5 mm of anterolisthesis of C5 on C6 which does not change significantly with flexion or extens ion. XR/XR cervical spine 4-5V 21513 IMPRESSION: Degenerative spondylosis as above.
--- NOTE | 2023-01-06 15:54 | XR_ITS ---
WS: [email or web address] XR thoracic spine 2V [id number] REASON FOR EXAM: THORACIC BACK PAIN FINDINGS: Mild thoracic scoliosis (8 to 10 degrees). Thoracic spine appears straightened in the lateral view. No thoracic vertebral body abnormality. Disc spaces are relatively well-preserved.) convex right. XR/XR thoracic spine 2V [id number] IMPRESSION: Mild thoracic scoliosis.
== END 2023-01-06 15:18 | disposition home or self-care (01) ==
LOC: RAD 15:25
PROVIDERS: PCP Nurse Practitioner Family; Visit Provider Nurse Practitioner Family
DX: M47.892 Other spondylosis, cervical region (principal); M41.84 Other forms of scoliosis, thoracic region
CPT/HCPCS: 72050; 72070

== ENCOUNTER 2023-03-16 10:29 | Outpatient (CLI) | payer MEDICAID, SELFPAY ==
--- NOTE | 2023-03-16 10:53 | MR_ITS ---
WS: [id number] MRI CERVICAL SPINE NONCONTRAST HISTORY: NECK PAIN COMPARISON: None available. Technique: Multiplanar, multisequence noncontrast imaging of the cervical spine. Mild straightening of normal cervical lordosis could be positional or due to spasm. No marrow edema o r fracture. Signal within the cervical cord is normal. Visualized posterior fossa is unremarkable. Craniocervical junction, C1 and C2 relationship, odontoid process and soft tissues are normal. C2-C3: Normal. C3-C4: Normal. C4-C5: Normal. C5-C6: Normal. C6-C7: Normal. C7-T1: Normal. Paraspinal soft tissue are normal. MR/MR cervical spin wo con* [id number] IMPRESSION: Normal MRI C-spine.
== END 2023-03-16 10:30 | disposition home or self-care (01) ==
LOC: RAD 10:36
PROVIDERS: PCP Nurse Practitioner Family; Visit Provider Nurse Practitioner Family
DX: M54.2 Cervicalgia (principal)
CPT/HCPCS: 72141

== ENCOUNTER 2023-04-07 06:00 | Outpatient (RCR) | payer MEDICAID, SELFPAY | END 2023-05-05 23:59 | disposition home or self-care (01) | LOC: TPT 06:00 | PROVIDERS: Visit Provider Physician Assistant | DX: M54.2 Cervicalgia (principal); G89.29 Other chronic pain | CPT/HCPCS: 97110; 97140; 97163 ==

== ENCOUNTER 2023-05-06 06:00 | Outpatient (RCR) | payer MEDICAID, SELFPAY | END 2023-06-05 23:59 | disposition home or self-care (01) | LOC: TPT 06:00 | PROVIDERS: Visit Provider Physician Assistant | DX: M54.2 Cervicalgia (principal); G89.29 Other chronic pain | CPT/HCPCS: 97110; 97140 ==

== ENCOUNTER 2023-06-09 14:08 | Outpatient (CLI) | payer MEDICAID, SELFPAY ==
--- NOTE | 2023-06-09 14:15 | US_ITS ---
WS: [email or web address] RIGHT UPPER QUADRANT ULTRASOUND HISTORY: RUQ ABDOMINAL PAIN COMPARISON: None available. Liver: 17.7 cm in length. Mildly enlarged liver. Very minimal coarse echotexture from hepatic steatos is. No mass. Portal Vein: Normal hepatopetal flow with monophasic waveform. Gallbladder: Partially calcified stones within the gallbladder. There is mild gallbladder wall thicke lulu which could be tumefactive sludge. CBD: 0.3 cm Pancreas: Normal size and echogenicity. Right kidney: 11.1 cm in length. Normal size and echogenicity. No hydronephrosis or mass. Aorta and IVC: Unremarkable abdominal aorta and IVC. No ascites. US/US abdomen limited [id number] IMPRESSION: 1. Cholelithiasis. Partially calcified stones within the gallbladder. There is increased soft tissue adjacent to the stones which could be tumefactive sludge . Recommend surgical evaluation. 2. No bile duct dilatation. 3. Mild hepatic enlargement with steatosis.
== END 2023-06-09 14:09 | disposition home or self-care (01) ==
LOC: RAD 14:09
PROVIDERS: Visit Provider Nurse Practitioner Family
DX: K80.20 Calculus of gallbladder without cholecystitis without obstruction (principal); R16.0 Hepatomegaly, not elsewhere classified; R10.11 Right upper quadrant pain
CPT/HCPCS: 76705

== ENCOUNTER → 2024-11-20 13:58 | Outpatient (BNVA) | payer SELFPAY | PROVIDERS: PCP Nurse Practitioner Family; Visit Provider Nurse Practitioner Women's Health | DX: Z34.90 Encounter for supervision of normal pregnancy, unspecified, unspecified trimester (principal) | CPT/HCPCS: 76801; 81025; 84315; 87086 ==

== ENCOUNTER → 2024-12-04 08:48 | Outpatient (BNVA) | payer BC, MEDICAID, SELFPAY | PROVIDERS: PCP Nurse Practitioner Family; Visit Provider Nurse Practitioner Women's Health | DX: Z34.81 Encounter for supervision of other normal pregnancy, first trimester (principal) | CPT/HCPCS: 80307; 81000; 86592; 86762; 86803; 86850; 86900; 87086; 87340; 87806 ==

== ENCOUNTER → 2024-12-20 09:48 | Outpatient (BNVA) | payer BC, MEDICAID, SELFPAY | PROVIDERS: PCP Nurse Practitioner Family; Visit Provider Obstetrics & Gynecology | DX: O09.899 Supervision of other high risk pregnancies, unspecified trimester (principal); Z12.4 Encounter for screening for malignant neoplasm of cervix | CPT/HCPCS: 82950; 84315; 88175 ==

== ENCOUNTER → 2024-12-31 08:37 | Outpatient (BNVA) | payer BC, MEDICAID, SELFPAY | PROVIDERS: PCP Nurse Practitioner Family; Visit Provider Nurse Practitioner Women's Health | DX: Z86.32 Personal history of gestational diabetes (principal); O09.899 Supervision of other high risk pregnancies, unspecified trimester | CPT/HCPCS: 82951; 82952 ==

== ENCOUNTER → 2025-01-17 07:44 | Outpatient (BNVA) | payer BC, MEDICAID, SELFPAY | PROVIDERS: PCP Nurse Practitioner Family; Visit Provider Nurse Practitioner Women's Health | DX: O99.331 Smoking (tobacco) complicating pregnancy, first trimester (principal); Z3A.16 16 weeks gestation of pregnancy | CPT/HCPCS: 82105; 84315; 87086 ==

== ENCOUNTER → 2025-02-13 14:09 | Outpatient (BNVA) | payer BC, MEDICAID, SELFPAY | PROVIDERS: PCP Nurse Practitioner Family; Visit Provider Nurse Practitioner Women's Health | DX: Z34.92 Encounter for supervision of normal pregnancy, unspecified, second trimester (principal) | CPT/HCPCS: 76805 ==

== ENCOUNTER → 2025-02-17 08:31 | Outpatient (BNVA) | payer BC, MEDICAID, SELFPAY | PROVIDERS: PCP Nurse Practitioner Family; Visit Provider Nurse Practitioner Women's Health | DX: O09.899 Supervision of other high risk pregnancies, unspecified trimester (principal); R82.71 Bacteriuria | CPT/HCPCS: 84315; 87086 ==

== ENCOUNTER → 2025-03-13 08:35 | Outpatient (BNVA) | payer BC, MEDICAID, SELFPAY | PROVIDERS: PCP Nurse Practitioner Family; Visit Provider Nurse Practitioner Women's Health | DX: Z34.80 Encounter for supervision of other normal pregnancy, unspecified trimester (principal) | CPT/HCPCS: 76816; 82951; 82952; 84315 ==

== ENCOUNTER 2025-03-22 15:11 | Outpatient (CLI) | payer BC, MEDICAID, SELFPAY ==
[2025-03-22 15:42] VITALS: BP 118/66; PULSE 121
[2025-03-22 15:48] LABS: Bilirubin Urine Negative (Negative); Blood Urine Negative (Negative); Glucose Urine UA 3+ (Normal); Ketones Urine Negative (Negative); Leukocyte Esterase Urine Negative (Negative); Nitrate Urine Negative (Negative); Protein Urine Negative (Negative); Specific Gravity, Urine 1.025 (1.005-1.030); Urine Appearance Clear (CLEAR); Urine Color Yellow (Yellow)
[2025-03-22 15:53] LABS: Bacteria Urine None Seen /hpf; Hyaline Casts Urine 0-4 /lpf; RBC Urine 0-2 /hpf (0-2); Squamous Epithelial Cell Urine 0-5 /hpf (0-5); WBC Urine 0-5 /hpf (0-5)
[2025-03-22 15:57] VITALS: BP 101/52; PULSE 115
[2025-03-22] MEDS: fluconazole 100 mg Tablet 150 MG PO (16:14)
== END 2025-03-22 16:18 | disposition home or self-care (01) ==
LOC: OPOB 15:11 → OBGYN 15:12
PROVIDERS: PCP Nurse Practitioner Family; Visit Provider Obstetrics & Gynecology
DX: O26.899 Other specified pregnancy related conditions, unspecified trimester (principal); Z3A.00 Weeks of gestation of pregnancy not specified; R52 Pain, unspecified
CPT/HCPCS: 81001; 99211; J9999

== ENCOUNTER 2025-04-05 14:38 | Outpatient (CLI) | payer BC, MEDICAID, SELFPAY ==
[2025-04-05 14:35] VITALS: BMI 31.8
[2025-04-05 14:49] VITALS: BP 134/83; PULSE 110
[2025-04-05 15:05] LABS: Bilirubin Urine Negative (Negative); Blood Urine Negative (Negative); Glucose Urine UA Negative (Normal); Ketones Urine Negative (Negative); Leukocyte Esterase Urine Trace (Negative); Nitrate Urine Negative (Negative); Protein Urine Negative (Negative); Specific Gravity, Urine 1.012 (1.005-1.030); Urine Appearance Clear (CLEAR); Urine Color Yellow (Yellow); Urobilinogen Urine 0.2 mg/dL (Negative)
[2025-04-05 15:08] LABS: Bacteria Urine Trace /hpf; RBC Urine 0-2 /hpf (0-2); Squamous Epithelial Cell Urine 0-5 /hpf (0-5); WBC Urine 0-5 /hpf (0-5)
[2025-04-05 15:10] VITALS: BP 126/73; PULSE 103
[2025-04-05 15:29] VITALS: BP 98/54; PULSE 99
[2025-04-05 16:08] VITALS: BP 98/54; PULSE 99; O2SAT 98
== END 2025-04-05 15:57 | disposition home or self-care (01) ==
LOC: OPOB 14:39 → OBGYN 14:40
PROVIDERS: PCP Nurse Practitioner Family; Visit Provider Obstetrics & Gynecology
DX: O26.899 Other specified pregnancy related conditions, unspecified trimester (principal); Z3A.00 Weeks of gestation of pregnancy not specified; R52 Pain, unspecified
CPT/HCPCS: 81001; 99211

== ENCOUNTER → 2025-04-11 09:33 | Outpatient (BNVA) | payer BC, MEDICAID, SELFPAY | PROVIDERS: PCP Nurse Practitioner Family; Visit Provider Nurse Practitioner Women's Health | DX: O09.899 Supervision of other high risk pregnancies, unspecified trimester (principal) | CPT/HCPCS: 84315; 85025 ==

== ENCOUNTER → 2025-04-14 07:48 | Outpatient (BNVA) | payer BC, MEDICAID, SELFPAY | PROVIDERS: PCP Nurse Practitioner Family; Visit Provider Nurse Practitioner Women's Health | DX: Z36.9 Encounter for antenatal screening, unspecified (principal) | CPT/HCPCS: 76816 ==

== ENCOUNTER 2025-04-25 11:24 | Outpatient (CLI) | payer BC, MEDICAID, SELFPAY ==
[2025-04-25 11:42] VITALS: BP 130/59; PULSE 96; RESP 16; TEMP 36.6; TEMP 36.7
[2025-04-25 11:57] VITALS: BP 106/58; PULSE 96; RESP 15
[2025-04-25 12:21] VITALS: BMI 32.2
[2025-04-25 12:24] LABS: Nitrazine Paper, PH Negative
[2025-04-25 12:29] LABS: Basophils # 0.1 10^3/uL (0.0-0.1); Basophils % 0.4 %; Eosinophils # 0.4 10^3/uL (0.0-0.8); Eosinophils % 2.5 %; Hematocrit 31.4 % (36-47); Lymphocytes # 2.9 10^3/uL (0.8-4.8); Lymphocytes % 18.1 %; Mean Corpuscular HGB Conc 33.1 g/dL (30-55); Mean Corpuscular Hemoglobin 30.3 pg (27-33); Mean Corpuscular Volume 91.5 fl (85-98); Monocytes # 0.7 10^3/uL (0.2-0.9); Monocytes % 4.5 %; Neutrophils # 11.85 10^3/uL (1.8-7.7); Neutrophils % 73.8 %; Nucleated Red Blood Cells % 0 %; Platelet Count 223 10^3/cmm (157-399); Red Blood Count 3.43 10^6/uL (3.85-5.65); Red Cell Distribution Width 13.4 % (12.1-15.1); White Blood Count 16.08 10^3/uL (3.29-11.43)
[2025-04-25 12:30] LABS: Bilirubin Urine Negative (Negative); Blood Urine Negative (Negative); Glucose Urine UA Negative (Normal); Ketones Urine Trace (Negative); Leukocyte Esterase Urine 1+ (Negative); Nitrate Urine Negative (Negative); Protein Urine Trace (Negative); Specific Gravity, Urine 1.025 (1.005-1.030); Urine Appearance Clear (CLEAR); Urine Color Dark Yellow (Yellow); pH Urine 6.5 (5-7)
[2025-04-25 12:33] LABS: Add Urine Microscopic? YES; Bacteria Urine Trace /hpf; Hyaline Casts Urine 1.21 /lpf; RBC Urine 0-2 /hpf (0-2)
[2025-04-25 12:38] VITALS: BP 113/65; PULSE 87; RESP 16
[2025-04-25 12:39] LABS: Add Urine Culture? Yes
[2025-04-25 12:44] LABS: Alanine Aminotransferase < 5 U/L (0-33); Albumin Level 3.6 g/dL (3.5-5.2); Alkaline Phosphatase 87 U/L (35-105); Aspartate Amino Transferase 9 U/L (0-32); Blood Urea Nitrogen 7 mg/dL (6-20); Calcium 8.4 mg/dL (8.5-10.5); Carbon Dioxide 18 mmol/L (22-29); Chloride 104 mmol/L (98-107); Creatinine Clr Calc Pharmacy 254.4976; Globulin 3.1 g/dL (1.3-4.6); Glomerular Filtration Rate 196.1 mL/min (90-130); Glucose 78 mg/dL (65-115); Osmolality Calculated 279 mOsm/kg (285-295); Sodium 136 mmol/L (136-145); Total Bilirubin 0.2 mg/dL (0.15-1.2); Total Protein 6.7 g/dL (6.6-8.7)
[2025-04-25 12:57] VITALS: BP 126/58; PULSE 92; RESP 16
--- NOTE | 2025-04-25 13:12 | P.TNLD_ITS ---
OB L&D Triage Visit Information: Date of evaluation: 04/25/25 Comments/Additional reason(s) for visit: 24-year-old female G4, P1 at 30.2 weeks gestation with NISHA 07/02/2025 seen in labor and delivery triage with complaints of abdominal pain x 2 weeks. Patient was seen at the women's clinic this morning with complaints of abdominal pain. EFM?category 1 Cervical exam by nursing staff reports cervix is 1 cm dilated/25%/-4 vertex presentation. No blood in vaginal vault or leakage of fluid nitrazine was negative. Abdomen?soft, tenderness to palpation periumbilical and suprapubically. Negative CVA pain. Lab?CBC?WBC 16.08, hemoglobin 10.4, hematocrit 31.4, platelets 223, neutrophils 11.85 UA?pH 6.5, specific gravity 1.025, nitrates negative, leuk esterase +1, WBCs 11- 20 Reviewed with patient increase in WBC with positive leuk esterase and WBCs in her urine indicates a UTI. The risk of sepsis and pyelonephritis and labor reviewed in great detail. Patient had initially refused IV antibiotics for treatment, only wanting p.o. meds. After discussing the risk of this infection causing sepsis and labor patient will now except IV antibiotic treatment. Encouraged to also take the antibiotics orally which she will receive a prescription. Patient verbalizes understanding. Evaluation: monitor accelerations: Present 10x10 station: -4 Laboratory results: Laboratory Tests 04/25/25 04/25/25 04/25/25 11:30 12:16 12:20 WBC 16.08 H RBC 3.43 L Hgb 10.40 L Hct 31.4 L MCV 91.5 MCH 30.3 MCHC 33.1 RDW 13.4 Plt Count 223 MPV 11.0 H Neut % (Auto) 73.8 Lymph % (Auto) 18.1 [place] % (Auto) 4.5 Eos % (Auto) 2.5 Baso % (Auto) 0.4 Neut # (Auto) 11.85 H Lymph # (Auto) 2.9 [place] # (Auto) 0.7 Eos # (Auto) 0.4 Baso # (Auto) 0.1 Nucleated RBC % (a uto) 0 Nucleated RBCs # 0.0 Sodium 136 Potassium 4.0 Chloride 104 Carbon Dioxide 18 L Anion Gap 18.0 BUN 7 Creatinine 0.4 L GFR Calculation 196.1 H Glucose 78 Calculated Osmolal ity 279 L Calcium 8.4 L Total Bilirubin 0.2 AST 9 ALT < 5 Alkaline Phosphata se 87 Total Protein 6.7 Albumin 3.6 Globulin 3.1 Urine Color Dark yellow A Urine Appearance Clear Urine pH 6.5 Ur Specific Gravit y 1.025 Urine Protein Trace A Urine Glucose (UA) Negative Urine Ketones Trace Urine Blood Negative Urine Nitrate Negative Urine Bilirubin Negative Urine Urobilinogen 1.0 Ur Leukocyte Shelby ase 1+ A Urine RBC 0-2 Urine WBC 11-20 H Ur Squamous Epith Cells 6-10 Amorphous Sediment Not Reportable Urine Bacteria Trace Hyaline Casts 1.21 Fluid pH (paper) Negative Vital signs: Vital Signs - 24 hr 04/25/25 11:42 04/25/25 11:57 04/25/25 12:38 Pulse Rate 96 96 Blood Pressure 130/59 106/58 113/65 04/25/25 12:38 04/25/25 12:57 04/25/25 12:57 Pulse Rate 87 92 Blood Pressure 126/58 Care NISHA Calculator Estimated Delivery Date Method Current WG Current Estimate 07/02/25 Ultrasound #1 30w 2d Specific Issues/Plans * NICOTINE USE * HX PPROM at 35wks with first baby * TREATED AT GDM (due to inability to tolerate 3hr GTT)-- diet controlled * UNKNOWN LMP-- slip 8wk sono dates preg Final Diagnosis Final Diagnosis (1) 30 weeks gestation of : Plan: Will treat with IV Ancef for symptomatic UTI (abdominal pain with elevated WBCs 16.08) and will be given an Rx for Macrobid 100 twice daily x 7 days . Status: Acute Code(s): Z3A.30 - 30 weeks gestation of (2) UTI (urinary tract infection) in in third trimester: Plan: IV Ancef with Rx for Macrobid 100 mg twice daily x 7 days Encouraged increase hydration Status: Acute Code(s): O23.43 - Unspecified infection of urinary tract in , third trimester (3) History of delivery, currently : Status: Acute Code(s): O09.899 - Supervision of other high risk pregnancies, unspecified trimester (4) Tobacco use in : Status: Acute Qualifiers: Trimester: first trimester Qualified Code(s): O99.331 - Smoking (tobacco) complicating , first trimester Code(s): O99.330 - Smoking (tobacco) complicating , unspecified trimester Coding Level of Care Code Acute Code for Chg Fwd Diagnoses 30 weeks gestation of Z3A.30 UTI (urinary tract infection) in in third trimester O23.43 History of delivery, currently O09.899 Maternal tobacco use in first trimester O99.331 Trimester: first trimester
--- NOTE | 2025-04-25 13:23 | P.TNLD_ITS ---
OB L&D Triage Visit Information: Date of evaluation: 04/25/25 Comments/Additional reason(s) for visit: 24-year-old female G4, P1 at 30 weeks ge station seen on labor and delivery triage for complaints of abdominal pain. UA and CBC indicated a UTI. I had encouraged patient to except IV antibiotics for risk of sepsis and labor. Patient had initially agreed but now states she does not want IV antibiotics and will sign AMA to be discharged. 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 Evaluation: monitor accelerations: Present 10x10 station: -4 Laboratory results: Laboratory Tests 04/25/25 04/25/25 04/25/25 11:30 12:16 12:20 WBC 16.08 H RBC 3.43 L Hgb 10.40 L Hct 31.4 L MCV 91.5 MCH 30.3 MCHC 33.1 RDW 13.4 Plt Count 223 MPV 11.0 H Neut % (Auto) 73.8 Lymph % (Auto) 18.1 [place] % (Auto) 4.5 Eos % (Auto) 2.5 Baso % (Auto) 0.4 Neut # (Auto) 11.85 H Lymph # (Auto) 2.9 [place] # (Auto) 0.7 Eos # (Auto) 0.4 Baso # (Auto) 0.1 Nucleated RBC % (a uto) 0 Nucleated RBCs # 0.0 Sodium 136 Potassium 4.0 Chloride 104 Carbon Dioxide 18 L Anion Gap 18.0 BUN 7 Creatinine 0.4 L GFR Calculation 196.1 H Glucose 78 Calculated Osmolal ity 279 L Calcium 8.4 L Total Bilirubin 0.2 AST 9 ALT < 5 Alkaline Phosphata se 87 Total Protein 6.7 Albumin 3.6 Globulin 3.1 Urine Color Dark yellow A Urine Appearance Clear Urine pH 6.5 Ur Specific Gravit y 1.025 Urine Protein Trace A Urine Glucose (UA) Negative Urine Ketones Trace Urine Blood Negative Urine Nitrate Negative Urine Bilirubin Negative Urine Urobilinogen 1.0 Ur Leukocyte Shelby ase 1+ A Urine RBC 0-2 Urine WBC 11-20 H Ur Squamous Epith Cells 6-10 Amorphous Sediment Not Reportable Urine Bacteria Trace Hyaline Casts 1.21 Fluid pH (paper) Negative Vital signs: Vital Signs - 24 hr 04/25/25 11:42 04/25/25 11:57 04/25/25 12:38 Pulse Rate 96 96 Blood Pressure 130/59 106/58 113/65 04/25/25 12:38 04/25/25 12:57 04/25/25 12:57 Pulse Rate 87 92 Blood Pressure 126/58 Care NISHA Calculator Estimated Delivery Date Method Current WG Current Estimate 07/02/25 Ultrasound #1 30w 2d Specific Issues/Plans * NICOTINE USE * HX PPROM at 35wks with first baby * TREATED AT GDM (due to inability to tolerate 3hr GTT)-- diet controlled * UNKNOWN LMP-- slip 8wk sono dates preg Final Diagnosis Final Diagnosis (1) 30 weeks gestation of : Status: Acute Code(s): Z3A.30 - 30 weeks gestation of (2) UTI (urinary tract infection) in in third trimester: Plan: Patient signing out AMA, declined IV antibiotics for symptomatic UTI. Status: Acute Code(s): O23.43 - Unspecified infection of urinary tract in , third trimester (3) History of delivery, currently : Status: Acute Code(s): O09.899 - Supervision of other high risk pregnancies, unspecified trimester (4) Tobacco use in : Status: Acute Qualifiers: Trimester: first trimester Qualified Code(s): O99.331 - Smoking (tobacco) complicating , first trimester Code(s): O99.330 - Smoking (tobacco) complicating , unspecified trimester Coding Level of Care Code Acute Code for Chg Fwd Diagnoses 30 weeks gestation of Z3A.30 UTI (urinary tract infection) in in third trimester O23.43 History of delivery, currently O09.899 Maternal tobacco use in first trimester O99.331 Trimester: first trimester
--- NOTE | 2025-04-25 13:30 | PC.NURSE ---
100 mg macrobid PO BID for 7 days called in to [facility] by this nurse at this time.
--- NOTE | 2025-04-25 14:21 | PC.NURSE ---
1320: Patient states I changed my mind, I dont want the IV. I'm just going to leave. Dr. Silverio reiterated to patient the risks of leaving without IV ancef treatment. Patient states I am leaving, just give me my papers. Patient was advised that she is leaving against medical advice. Patient then signed AMA paperwork. This nurse educated patient on signs and symptoms for which she would need to return to OB department. This nurse informed patient that a prescription for macrobid was called into the [facility] for her and to begin prescription today.
== END 2025-04-25 13:27 | disposition left against medical advice (07) ==
LOC: OPOB 11:25 → OBGYN 11:25
PROVIDERS: Obstetrics & Gynecology; PCP Nurse Practitioner Family; Visit Provider Obstetrics & Gynecology
DX: O26.899 Other specified pregnancy related conditions, unspecified trimester (principal); Z3A.00 Weeks of gestation of pregnancy not specified; R25.2 Cramp and spasm; N89.8 Other specified noninflammatory disorders of vagina
CPT/HCPCS: 80053; 81001; 83986; 84315; 85025; 87086; 99211

== ENCOUNTER → 2025-05-05 15:08 | Outpatient (BNVA) | payer BC, MEDICAID, SELFPAY | PROVIDERS: PCP Nurse Practitioner Family; Visit Provider Obstetrics & Gynecology | DX: O09.899 Supervision of other high risk pregnancies, unspecified trimester (principal) | CPT/HCPCS: 80053; 82542; 84315 ==

== ENCOUNTER → 2025-05-08 11:32 | Outpatient (BNVA) | payer BC, MEDICAID, SELFPAY | PROVIDERS: PCP Nurse Practitioner Family; Visit Provider Obstetrics & Gynecology | DX: O09.899 Supervision of other high risk pregnancies, unspecified trimester (principal) | CPT/HCPCS: 76816; 82950; 83036; 84315 ==

== ENCOUNTER → 2025-05-23 09:50 | Outpatient (BNVA) | payer BC, MEDICAID, SELFPAY | PROVIDERS: PCP Nurse Practitioner Family; Visit Provider Nurse Practitioner Women's Health | DX: O09.899 Supervision of other high risk pregnancies, unspecified trimester (principal); O99.019 Anemia complicating pregnancy, unspecified trimester | CPT/HCPCS: 84315; 85025 ==

== ENCOUNTER → 2025-06-05 13:43 | Outpatient (BNVA) | payer BC, MEDICAID, SELFPAY | PROVIDERS: PCP Nurse Practitioner Family; Visit Provider Obstetrics & Gynecology | DX: O09.899 Supervision of other high risk pregnancies, unspecified trimester (principal) | CPT/HCPCS: 76816; 84315; 87081 ==

== ENCOUNTER → 2025-06-12 09:19 | Outpatient (BNVA) | payer BC, MEDICAID, SELFPAY | PROVIDERS: PCP Nurse Practitioner Family; Visit Provider Obstetrics & Gynecology | DX: Z3A.37 37 weeks gestation of pregnancy (principal) | CPT/HCPCS: 84315 ==

== ENCOUNTER 2025-06-17 17:20 | Outpatient (CLI) | payer BC, MEDICAID, SELFPAY ==
[2025-06-17] VITALS (10 sets, daily range): BP systolic 133; BP diastolic 81–82; PULSE 115–127; RESP 16; O2SAT 97–98; BMI 34.0
== END 2025-06-17 18:05 | disposition home or self-care (01) ==
LOC: OPOB 17:23 → OBGYN 17:23
PROVIDERS: PCP Nurse Practitioner Family; Visit Provider Obstetrics & Gynecology
DX: O26.899 Other specified pregnancy related conditions, unspecified trimester (principal); Z3A.00 Weeks of gestation of pregnancy not specified; R00.2 Palpitations
CPT/HCPCS: 59025; 99211

== ENCOUNTER 2025-06-17 18:06 | Emergency (ER) | payer BC, MEDICAID, SELFPAY ==
[2025-06-17 18:11] VITALS: BP 128/83; PULSE 117; RESP 16; TEMP 36.9; O2SAT 95
--- NOTE | 2025-06-17 18:14 | ECG_ITS ---
[facility] Test Date: 2025-06-17 Pat Name: Jessica Mandel Department: Room: Gender: Female Secretary Of State: : 2000 Requested By: Theodora Quinones Order Number: [id number] Cardona MD: Glynn Taylor M.D. Measurements Intervals [place] Rate: 121 P: 50 NE: 133 QRS: 39 QRSD: 78 T: 34 QT: 304 QTc: 432 Interpretive Statements SINUS TACHYCARDIA ABNORMAL RHYTHM ECG Compared to ECG 06/24/2021 13:12:15 T-wave abnormality no longer present Electronically Signed On 06-17-2025 21:29:14 CDT by Glynn Taylor M.D. [email or web address]
[2025-06-17 19:51] VITALS: BP 136/90; PULSE 110; RESP 18; O2SAT 98
--- NOTE | 2025-06-17 19:53 | USR_ITS ---
PROCEDURE INFORMATION: Exam: US Duplex Lower Extremity Veins, Bilateral Exam date and time: 06/17/2025 8:12 PM Age: 24 years old Clinical indication: Edema, localized; Lower extremity, bilateral; G3-p2-a0-l2 38 weeks gestation presenting with mild, bilateral lower extremity edema. ; Additional info: Bilateral lower extremity pain and swelling. TECHNIQUE: Imaging protocol: Real-time duplex ultrasound of the bilateral extremities with 2-D izaguirre scale, color Doppler flow and spectral waveform analysis including responses to compression and other maneuvers (when performed) with image documentation. Complete exam focused on the lower extremity veins. COMPARISON: [place] [id number] 06/05/2025 1:48 PM FINDINGS: Right deep veins: Unremarkable. The common femoral, femoral, proximal profunda femoral and popliteal veins are patent without thrombus. Normal Doppler waveforms. Normal compressibility and/or augmentation response. Left deep veins: Unremarkable. The common femoral, femoral, proximal profunda femoral and popliteal veins are patent without thrombus. Normal Doppler waveforms. Normal compressibility and/or augmentation response. Superficial veins: Greater saphenous veins at the saphenofemoral junctions are patent bilaterally without thrombus. Soft tissues: Unremarkable. US/[place] [id number] IMPRESSION: No evidence of deep vein thrombosis.
--- NOTE | 2025-06-17 20:06 | W.ED.ARRPALP ---
HPI - Arrhythmia/Palpitations General: Chief Complaint: Arrhythmia/Palpitations Stated Complaint: OB sent, irregular heartbeat Time Seen by Provider: 06/17/25 19:51 History of Present Illness: 24-year-old female who is G3 para 2 and is currently 38 weeks who presents to the emergency room from OB ED with tachycardia. She said she felt like her heart was beating funny so she gone to OB to be evaluated. I had checked the baby and because she was as high as 130 over there they sent her to the emergency room. Here heart rate is come down some. However initial blood pressure is a bit elevated with a diastolic blood pressure in the mid 90s. However she appears quite anxious. No dysuria. No abdominal pain. No cramping. No vaginal bleeding or vaginal discharge. No chest pain. No altered mental status. She says that her previous 2 pregnancies were delivered at 30 weeks and 36 weeks. She is concerned about preeclampsia but she has not had it in the past. Related Data Home Medications ?Medication ?Instructions ?Recorded ?Confirmed ferrous sulfate 27 mg iron tablet 27 mg PO DAILY 05/23/25 06/12/25 Previous Rx's ?Medication ?Instructions ?Recorded omeprazole 20 mg capsule,delayed 40 mg (2 x 20 mg) PO DAILY #60 caps 04/25/25 release hydroxyzine HCl 25 mg tablet 25 mg PO TID PRN itching #20 tabs 05/08/25 Allergies Allergy/AdvReac Type Severity Reaction Status Date / Time No Known Allergies Allergy Verified 06/17/25 18:18 Review of Systems Narrative: Constitutional symptoms: Negative except as documented in HPI. Skin symptoms: Negative except as documented in HPI. Eye symptoms: Negative except as documented in HPI. ENMT symptoms: Negative except as documented in HPI. Respiratory symptoms: Negative except as documented in HPI. Cardiovascular symptoms: Negative except as documented in HPI. Gastrointestinal symptoms: Negative except as documented in HPI. Genitourinary symptoms: Negative except as documented in HPI. Musculoskeletal symptoms: Negative except as documented in HPI. Neurologic symptoms: Negative except as documented in HPI. Psychiatric symptoms: Negative except as documented in HPI. Endocrine symptoms: Negative except as documented in HPI. [facility] ED PFSH: Medical History (Updated 06/17/25 @ 21:15 by Theodora Moore MD) No pertinent past medical history neghx: htn, dm, thyroid, dvt/pe PCP: Melissa Jaquez Hx gestational diabetes third - she could not tolerate the 3 hour-- treated as diet controlled Surgical History Hx of appendectomy Hx of eye surgery bilateral Hx of tonsillectomy Family History Unknown Cancer Leukemia Grandmother Cancer lung cancer Denies family history of Colon cancer Ovarian cancer Brain cancer Diabetes Heart disease Hyperlipidemia Hypertension Uterine cancer Thyroid disease Stroke Social History Smoking and tobacco/nicotine status: current every day tobacco/nicotine user cigarettes Alcohol intake: never Physical Exam Narrative: EXAM NARRATIVE: General: Alert, no acute distress. Skin: Warm, dry. Head: Normocephalic, atraumatic. Neck: Supple, trachea midline. Eye: Extraocular movements are intact. Ears, nose, mouth and throat: mucosa moist. Cardiovascular: Regular, Normal peripheral perfusion. Respiratory: Lungs are clear to auscultation, respirations are non-labored, breath sounds are equal, Symmetrical chest wall expansion. Gastrointestinal: Gravid. Musculoskeletal: Normal ROM, no deformity. Neurological: Alert and oriented, No focal neurological deficit observed. Psychiatric: Cooperative, appropriate mood & affect. Course Vital Signs: Vital signs: Vital Signs Temperature 98.4 F 06/17/25 18:11 Pulse Rate 110 H 06/17/25 19:51 Respiratory Rate 18 06/17/25 19:51 Blood Pressure 136/90 06/17/25 19:51 Pulse Oximetry 98 06/17/25 19:51 Oxygen Delivery Me thod Room Air 06/17/25 18:11 MDM - Arrhythmia/Palpitations Medical Decision Making Medical decision making: Differential diagnosis including but not limited to and based on the above HPI, review of systems and physical exam: In this patient who is 38 weeks and tachycardic would have concern for infection, preeclampsia, electrolyte abnormalities, hyperthyroidism etc. Orders placed to evaluate differential diagnosis based on the above differential, HPI and physical exam Lab Review: Laboratory results were reviewed and interpreted by myself the emergency room physician. Mild leukocytosis with a white count of 19,000. However previous white counts a bit about this. Hemoglobin is 10.9. No renal failure. Magnesium is normal. Urinalysis shows no infection and no proteinuria. Liver enzymes are normal. Ultrasound of the bilateral lower extremity showed no DVT. This was reviewed and interpreted by myself the emergency room physician. I also reviewed the radiology report. I reviewed the patient's medical record. Reexamination: After testing was complete patient has relaxed considerably and her heart rate has dropped down into the 80s whenever I was talking with her and her blood pressure has come down to 113/80 at discharge. No increased work of breathing. No altered mental status. Consultation: I spoke with Dr. Willis. If patient's blood pressure would have remained up we would have admitted her but it has come back down and so she is comfortable going home. Assessment and plan: Tachycardia in . Anxiety - Discharged home - Discussed plan with patient. Answered any questions. - Evaluation and treatment of this problem were appropriate in the emergency setting. Lab Data 06/17/25 20:14 06/17/25 20:14 Radiology Impressions Venous Duplex 06/17/25 19:53 IMPRESSION: No evidence of deep vein thrombosis. Laboratory Results WBC 19.53 10^3/uL (3.29-11.43) H 06/17/25 20:14 RBC 3.83 10^6/uL (3.85-5.65) L 06/17/25 20:14 Hgb 10.90 g/dL (11.27-16.99) L 06/17/25 20:14 Hct 33.6 % (36-47) L 06/17/25 20:14 MCV 87.7 fl (85-98) 06/17/25 20:14 MCH 28.5 pg (27-33) 06/17/25 20:14 MCHC 32.4 g/dL (30-55) 06/17/25 20:14 RDW 14.3 % (12.1-15.1) 06/17/25 20:14 Plt Count 255 10^3/cmm (157-399) 06/17/25 20:14 MPV 11.4 fL (7.4-10.4) H 06/17/25 20:14 Neut % (Auto) 69.1 % 06/17/25 20:14 Lymph % (Auto) 19.8 % 06/17/25 20:14 [place] % (Auto) 6.1 % 06/17/25 20:14 Eos % (Auto) 3.2 % 06/17/25 20:14 Baso % (Auto) 0.4 % 06/17/25 20:14 Neut # (Auto) 13.51 10^3/uL (1.8-7.7) H 06/17/25 20:14 Lymph # (Auto) 3.9 10^3/uL (0.8-4.8) 06/17/25 20:14 [place] # (Auto) 1.2 10^3/uL (0.2-0.9) H 06/17/25 20:14 Eos # (Auto) 0.6 10^3/uL (0.0-0.8) 06/17/25 20:14 Baso # (Auto) 0.1 10^3/uL (0.0-0.1) 06/17/25 20:14 Nucleated RBC % (auto) 0 % 06/17/25 20:14 Nucleated RBCs # 0.0 /100WBC 06/17/25 20:14 Sodium 135 mmol/L (136-145) L 06/17/25 20:14 Potassium 3.7 mmol/L (3.5-5.1) 06/17/25 20:14 Chloride 101 mmol/L (98-107) 06/17/25 20:14 Carbon Dioxide 20 mmol/L (22-29) L 06/17/25 20:14 Anion Gap 17.7 (5-19) 06/17/25 20:14 BUN 7 mg/dL (6-20) 06/17/25 20:14 Creatinine 0.6 mg/dL (0.5-0.9) 06/17/25 20:14 GFR Calculation 122.8 mL/min (90-130) 06/17/25 20:14 Glucose 74 mg/dL (65-115) 06/17/25 20:14 Calculated Osmolality 277 mOsm/kg (285-295) L 06/17/25 20:14 Calcium 9.3 mg/dL (8.5-10.5) 06/17/25 20:14 Magnesium 1.9 mg/dL (1.7-2.3) 06/17/25 20:14 Total Bilirubin 0.2 mg/dL (0.15-1.2) 06/17/25 20:14 AST 11 U/L (0-32) 06/17/25 20:14 ALT < 5 U/L (0-33) 06/17/25 20:14 Alkaline Phosphatase 145 U/L (35-105) H 06/17/25 20:14 Total Protein 7.2 g/dL (6.6-8.7) 06/17/25 20:14 Albumin 3.8 g/dL (3.5-5.2) 06/17/25 20:14 Globulin 3.4 g/dL (1.3-4.6) 06/17/25 20:14 TSH 2.83 uIU/mL (0.27-4.20) 06/17/25 20:14 Urine Color Yellow (Yellow) 06/17/25 20:20 Urine Appearance Clear (CLEAR) 06/17/25 20:20 Urine pH 6.5 (5-7) 06/17/25 20:20 Ur Specific [place] 1.017 (1.005-1.030) 06/17/25 20:20 Urine Protein Negative (Negative) 06/17/25 20:20 Urine Glucose (UA) Negative (Normal) 06/17/25 20:20 Urine Ketones Negative (Negative) 06/17/25 20:20 Urine Blood Negative (Negative) 06/17/25 20:20 Urine Nitrate Negative (Negative) 06/17/25 20:20 Urine Bilirubin Negative (Negative) 06/17/25 20:20 Urine Urobilinogen 1.0 mg/dL (Negative) 06/17/25 20:20 Ur Leukocyte Esterase Trace (Negative) A 06/17/25 20:20 Urine RBC 0-2 /hpf (0-2) 06/17/25 20:20 Urine WBC 0-5 /hpf (0-5) 06/17/25 20:20 Ur Squamous Epith Cells 6-10 /hpf (0-5) 06/17/25 20:20 Amorphous Sediment Not Reportable 06/17/25 20:20 Urine Bacteria Trace /hpf (NONE) 06/17/25 20:20 Hyaline Casts 1.21 /lpf 06/17/25 20:20 All radiology interpretation(s) finalized by discharge Discharge Plan Discharge Patient Disposition: Home Clinical Impression: , Sinus tachycardia, Anxiety Condition: Stable Prescriptions: No Action omeprazole 20 mg capsule,delayed release(DR/EC) 40 mg PO DAILY Qty: 60 3RF hydroxyzine HCl 25 mg tablet 25 mg PO TID PRN (Reason: itching) Qty: 20 0RF Rx Instructions: 1/2 -1 tab ferrous sulfate 27 mg iron tablet 27 mg PO DAILY Discharge Orders: Discharge ED (Routine); Ordered 06/17/25 Ordered By: Theodora Moore Discharge Diet: Usual diet Discharge Activity: Increase activity as tolerated Patient Instructions: Tachycardia (ED), Opioid Safety, Pain Management, Patient Portal & Timoteo Instructions Activity Restrictions/Additional Instructions: Thank you for choosing [facility] for your healthcare needs today. You have been screened and evaluated and felt safe for discharge. Health conditions do change or evolve sometimes and as such it is important that you follow up with your Primary Doctor to be re checked, 3-5 days is a general good time frame for follow up. 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
[2025-06-17 20:34] LABS: Hematocrit 33.6 % (36-47); Hemoglobin 10.90 g/dL (11.27-16.99); Mean Corpuscular HGB Conc 32.4 g/dL (30-55); Mean Corpuscular Hemoglobin 28.5 pg (27-33); Mean Corpuscular Volume 87.7 fl (85-98); Nucleated Red Blood Cells % 0 %; Platelet Count 255 10^3/cmm (157-399); Red Blood Count 3.83 10^6/uL (3.85-5.65); White Blood Count 19.53 10^3/uL (3.29-11.43)
[2025-06-17 20:42] LABS: Glucose Urine UA Negative (Normal); Nitrate Urine Negative (Negative); Specific Gravity, Urine 1.017 (1.005-1.030)
[2025-06-17 21:04] LABS: Alanine Aminotransferase < 5 U/L (0-33); Albumin Level 3.8 g/dL (3.5-5.2); Alkaline Phosphatase 145 U/L (35-105); Anion Gap 17.7 (5-19); Aspartate Amino Transferase 11 U/L (0-32); Blood Urea Nitrogen 7 mg/dL (6-20); Calcium 9.3 mg/dL (8.5-10.5); Carbon Dioxide 20 mmol/L (22-29); Chloride 101 mmol/L (98-107); Globulin 3.4 g/dL (1.3-4.6); Glucose 74 mg/dL (65-115); Magnesium 1.9 mg/dL (1.7-2.3); Osmolality Calculated 277 mOsm/kg (285-295); Potassium 3.7 mmol/L (3.5-5.1); Sodium 135 mmol/L (136-145); Thyroid Stimulating Hormone 2.83 uIU/mL (0.27-4.20); Total Protein 7.2 g/dL (6.6-8.7)
[2025-06-17 21:17] VITALS: BP 113/80; PULSE 98; RESP 20; O2SAT 97
[2025-06-17 21:18] VITALS: BP 113/80; PULSE 89; RESP 20; O2SAT 97
== END 2025-06-17 21:26 | disposition home or self-care (01) ==
PROVIDERS: Emergency Provider Emergency Medicine
DX: O99.891 Other specified diseases and conditions complicating pregnancy (principal); R00.0 Tachycardia, unspecified; F41.9 Anxiety disorder, unspecified; F17.210 Nicotine dependence, cigarettes, uncomplicated
CPT/HCPCS: 36415; 80053; 81001; 83735; 84443; 85025; 93005; 93970; 99284

== ENCOUNTER → 2025-06-19 12:49 | Outpatient (BNVA) | payer BC, MEDICAID, SELFPAY | PROVIDERS: PCP Nurse Practitioner Family; Visit Provider Obstetrics & Gynecology | DX: Z3A.37 37 weeks gestation of pregnancy (principal) | CPT/HCPCS: 84315 ==

== ENCOUNTER 2025-06-25 02:40 | Inpatient (IN) | payer BC, MEDICAID, SELFPAY ==
[2025-06-25] VITALS (23 sets, daily range): BP systolic 102–138; BP diastolic 56–84; PULSE 68–95; RESP 16–18; TEMP 36.2–36.6; O2SAT 97–98; BMI 74.7
[2025-06-25 02:28] LABS: Hematocrit 32.6 % (36-47); Hemoglobin 10.80 g/dL (11.27-16.99); Mean Corpuscular HGB Conc 33.1 g/dL (30-55); Mean Corpuscular Hemoglobin 29.1 pg (27-33); Mean Corpuscular Volume 87.9 fl (85-98); Platelet Count 259 10^3/cmm (157-399); Red Blood Count 3.71 10^6/uL (3.85-5.65); White Blood Count 16.31 10^3/uL (3.29-11.43)
[2025-06-25 03:03] LABS: Slide Review Slide Review Perform
[2025-06-25 03:04] LABS: Absolute Segmented Neutrophil 11.1 10/cmm (1.6-7.1); Atypical Lymphs 15.0 % (0-5); Band Neutrophils Absolute 0.0 10^3/cmm (0.0-1.2); Total Cells Counted 100 (0-100)
--- NOTE | 2025-06-25 03:15 | PM.OBGYHP ---
Providers/Chief Complaint Admitting Physician: Nacho Willis MD Primary BARREL LATHE OPERATOR: Nacho Willis MD Primary Care Provider: Melissa Jaquez Chief Complaint: contractions HPI BARREL LATHE OPERATOR History of Present Illness Jessica Mandel is a 24 year old female A1 EDC July 02, 2025 At 39 w 0 d No complications c/o painful uterine contractions no bleeding / fluid leakage + active movements Present Details : 4 Para: 2 Medications/Allergies Home Medications ?Medication ?Instructions ?Recorded ?Confirmed ?Last Taken ?Type omeprazole 20 mg capsule,delayed 40 mg (2 x 20 mg) PO DAILY #60 caps 04/25/25 06/19/25 Unknown Rx release Allergies Allergy/AdvReac Type Severity Reaction Status Date / Time No Known Allergies Allergy Verified 06/19/25 08:08 PFS BARREL LATHE OPERATOR PFSH: Medical History (Updated 06/25/25 @ 04:01 by Nacho Willis MD) No pertinent past medical history neghx: htn, dm, thyroid, dvt/pe PCP: Melissa Jaquez Hx gestational diabetes third - she could not tolerate the 3 hour-- treated as diet controlled Surgical History Hx of appendectomy Hx of eye surgery bilateral Hx of tonsillectomy Family History Unknown Cancer Leukemia Grandmother Cancer lung cancer Denies family history of Colon cancer Ovarian cancer Brain cancer Diabetes Heart disease Hyperlipidemia Hypertension Uterine cancer Thyroid disease Stroke Social History Smoking and tobacco/nicotine status: current every day tobacco/nicotine user cigarettes Alcohol intake: never Personal Safety: Do you feel safe at home: Yes Victim of physical abuse: No Victim of emotional abuse: No Victim of sexual abuse: No Would you like help information on resources?: No History History History 4 Term 1 1 Miscarriages/Ectopic 1 Living Children 2 Care NISHA Calculator Estimated Delivery Date Method Current WG Current Estimate 07/02/25 Ultrasound #1 39w 0d Specific Issues/Plans NICOTINE USE HX PPROM at 35wks with first baby Treated as if GDM in prev preg (due to inability to tolerate 3hr GTT)-- diet controlled; NEGATIVE THIS UNKNOWN LMP-- slip 8wk sono dates preg Vitals/I&O/Wt Last Vital Signs Pulse 80 06/25/25 03:53 BP 130/70 06/25/25 03:53 06/24/25 06/24/25 06/25/25 14:59 22:59 06:59 Intake Total 1000 / 1000 Balance 1000 / 1000 Weight last 48 hrs Weight 216 lb 8 oz Weight 477 lb 4.812 oz Physical Exam Narrative: Weight 215 lbs; 5?7? General awake, alert, appropriate VS normal Lungs: clear Cor: RRR FH 38 cm, cephalic Cervix: 6 cm / 100 / -2 Ext: no edema External monitor: regular [facility] heart tracing good variability, + accelerations Data 06/25/25 02:05 Results Labs OB ([facility]): Obstetrics US 06/05/25 Blood Type O Positive Today Antibody Screen Negative 12/04/24 Hct, (36-47) 32.6 % L Today Hgb, (11.27-16.99) 10.80 g/dL L Today Rho(D) Type Rh positive Today Plt Count, (157-399) 259 10^3/cmm Today Hep Bs Antigen, (Nonreactive) Non-reactive 12/04/24 Hepatitis C Antibody, (Nonreactive) Non-reactive 12/04/24 Rubella IgG Antibody, (0.0-10.0) 43.2 IU/mL H 12/04/24 RPR, (Nonreactive) Nonreactive 12/04/24 HIV 1&2 Ab & HIV 1 Ag, (Non-Reactiv) Non-reactive 12/04/24 TSH, (0.27-4.20) 2.83 uIU/mL 06/17/25 Glucose 1 Hr 50 gm, (85-140) 127 mg/dL 05/08/25 Gest Glucose Tolerance mg/dL 03/13/25 Hemoglobin A1c, (4.0-6.0) 4.6 % 05/08/25 HCG, Qual, (Negative) Positive H 11/20/24 Urine Opiates Screen, (Negative) Negative ng/mL 12/04/24 Ur Barbiturates Screen, (Negative) Negative ng/mL 12/04/24 Ur Phencyclidine Scrn, (Negative) Negative ng/mL 12/04/24 Ur Amphetamines Screen, (Negative) Negative ng/mL 12/04/24 U Benzodiazepines Scrn, (Negative) Negative ng/mL 12/04/24 Urine Cocaine Screen, (Negative) Negative ng/mL 12/04/24 U Marijuana (THC) Screen, (Negative) Negative ng/mL 12/04/24 Micro Urine Specimen 04/25/25 Pap Smear Interpret See note 12/20/24 A&P Assessment and plan 1. Active labor: 39 w 0 d Active labor Plan admit Labor management h/o x two PDMP PDMP Reviewed: Not Reviewed Attestations Medical Necessity Statement*: patient with active labor at term Coding Level of Care Code Acute Code for Chg Fwd Diagnoses Active labor
[2025-06-25] MEDS: oxytocin 30 UNIT/500 ML BAG 600 UNIT IV (03:26)
--- NOTE | 2025-06-25 04:01 | PM.DELIVERY ---
Delivery Note: Date of delivery: June 25, 2025 Pre-delivery diagnoses: 39 w 0 d active labor Post-delivery diagnoses: 39 w 0 d active labor Procedure: vaginal delivery Op report anesthesia: None Delivering Physician: Nacho Willis MD Estimated blood loss (mL): 300 Findings: , vigorous male infant + ankle cord, reduced Cord gases and blood obtained No episiotomy / lacerations EBL: 300 cc No complications Pre-Delivery Course: normal labor course fetus reassuring throughout Delivery: vaginal Post-Delivery Status: good History History History 4 Term 1 1 Miscarriages/Ectopic 1 Living Children 2 A&P Assessment and plan 1. Vaginal delivery: PDMP PDMP Reviewed: Not Reviewed Coding Level of Care Code Acute Code for Chg Fwd Diagnoses Vaginal delivery O80
[2025-06-25] MEDS: PRENATAL VIT NO.130/IRON/FOLIC 1 EACH TABLET PO (08:27)
--- NOTE | 2025-06-25 13:29 | PC.NURSE ---
1315: patient ambulatory to OB7; oriented to room. Patient expressed no questions or concerns at this time.
[2025-06-25 15:32] LABS: Hematocrit 26.5 % (36-47); Hemoglobin 8.70 g/dL (11.27-16.99); Mean Corpuscular HGB Conc 32.8 g/dL (30-55); Mean Corpuscular Hemoglobin 28.9 pg (27-33); Mean Corpuscular Volume 88.0 fl (85-98); Platelet Count 233 10^3/cmm (157-399); Red Blood Count 3.01 10^6/uL (3.85-5.65); White Blood Count 16.19 10^3/uL (3.29-11.43)
[2025-06-25] MEDS: HYDROcodone-acetaminophen 5-325 mg Tablet PO (17:12)
[2025-06-26 03:54] VITALS: BP 95/60; PULSE 72; RESP 15; TEMP 36.4; O2SAT 98
[2025-06-26] MEDS: PRENATAL VIT NO.130/IRON/FOLIC 1 EACH TABLET PO (09:11)
[2025-06-26 10:00] VITALS: BP 115/76; PULSE 110; RESP 18; TEMP 36.5; O2SAT 98
[2025-06-26 13:07] VITALS: BP 124/83; PULSE 90; RESP 18; TEMP 36.6; O2SAT 97
--- NOTE | 2025-06-26 17:04 | PM.OBGYDC ---
Discharge Providers MANAGER FORENSIC Date of Admission: 06/25/25 02:40 Date of Discharge: 06/26/25 Attending Provider at Admission: Nacho Willis MD Attending Provider at Discharge: Nacho Willis MD Consults: none Primary Care Provider: Nacho Willis MD Diagnoses at Discharge Discharge Diagnosis 1. Vaginal delivery: Details from hospital stay: 24 y.o. A1 at 39 w 0 d presented with painful uterine contractions cervix on admission was 6 cm fetus was reassuring patient proceeded to delivery vaginally without any complications. there were no lacerations patient did well and was discharged to home on the first day Reason for Visit Reason for Visit: contractions Brief History: 24 y.o. A1 at 39 w 0 d presented with painful uterine contractions Hospital Course Hospital Course 24 y.o. A1 at 39 w 0 d presented with painful uterine contractions cervix on admission was 6 cm fetus was reassuring patient proceeded to delivery vaginally without any complications. there were no lacerations patient did well and was discharged to home on the first day Information Peripartum Data: Delivery Method: Vaginal Laceration description: None Episiotomy description: None complications: none Physical Exam Narrative: afebrile, VS normal comfortable, awake, alert Lungs: clear Cor: RRR Abd: soft, nontender. fundus firm Ext: no edema; nontender History History History 4 Term 1 1 Miscarriages/Ectopic 1 Living Children 2 Discharge Data Studies Completed and Pending Laboratory Results WBC 16.19 10^3/uL (3.29-11.43) H 06/25/25 15:25 RBC 3.01 10^6/uL (3.85-5.65) L 06/25/25 15:25 Hgb 8.70 g/dL (11.27-16.99) L 06/25/25 15:25 Hct 26.5 % (36-47) L 06/25/25 15:25 MCV 88.0 fl (85-98) 06/25/25 15:25 MCH 28.9 pg (27-33) 06/25/25 15:25 MCHC 32.8 g/dL (30-55) 06/25/25 15:25 RDW 14.6 % (12.1-15.1) 06/25/25 15:25 Plt Count 233 10^3/cmm (157-399) 06/25/25 15:25 MPV 11.2 fL (7.4-10.4) H 06/25/25 15:25 Lymph % (Auto) Not Reportable 06/25/25 02:05 [place] % (Auto) Not Reportable 06/25/25 02:05 Lymph # (Auto) Not Reportable 06/25/25 02:05 [place] # (Auto) Not Reportable 06/25/25 02:05 Total Counted 100 (0-100) 06/25/25 02:05 Atypical Lymphs % 15.0 % (0-5) H 06/25/25 02:05 Absolute Neutrophils 11.1 10^3/cmm (1.4-6.5) H 06/25/25 02:05 Segmented Neutrophils 68 % 06/25/25 02:05 Band Neutrophils 0.0 % 06/25/25 02:05 Absolute Lymphocytes 4.2 10^3/cmm (1.2-3.4) H 06/25/25 02:05 Lymphocytes (Manual) 11 % 06/25/25 02:05 Monocytes (Manual) 5.0 % 06/25/25 02:05 Absolute Monocytes 0.8 10^3/cmm (0.1-0.6) H 06/25/25 02:05 Eosinophils (Manual) 1 % 06/25/25 02:05 Absolute Eosinophils 0.2 10^3/cmm (0.0-0.7) 06/25/25 02:05 Basophils (Manual) 0.0 % 06/25/25 02:05 Absolute Basophils 0.0 10^3/cmm (0.0-0.2) 06/25/25 02:05 Platelet Estimate Normal (Normal) 06/25/25 02:05 Blood Type O Positive 06/25/25 02:05 Rho(D) Type Rh positive 06/25/25 02:05 Antibody Screen Negative 06/25/25 02:05 Procedures Performed vaginal delivery Vitals Last Vital Signs Temp 97.9 F 06/26/25 13:07 Pulse 90 06/26/25 13:07 Resp 18 06/26/25 13:07 BP 124/83 06/26/25 13:07 Pulse Ox 97 06/26/25 13:07 O2 Del Method Room Air 06/26/25 10:00 Results Labs OB ([facility]): Obstetrics US 06/05/25 Blood Type O Positive 06/25/25 Antibody Screen Negative 06/25/25 Hct, (36-47) 26.5 % L 06/25/25 Hgb, (11.27-16.99) 8.70 g/dL L 06/25/25 Rho(D) Type Rh positive 06/25/25 Plt Count, (157-399) 233 10^3/cmm 06/25/25 Hep Bs Antigen, (Nonreactive) Non-reactive 12/04/24 Hepatitis C Antibody, (Nonreactive) Non-reactive 12/04/24 Rubella IgG Antibody, (0.0-10.0) 43.2 IU/mL H 12/04/24 RPR, (Nonreactive) Nonreactive 12/04/24 HIV 1&2 Ab & HIV 1 Ag, (Non-Reactiv) Non-reactive 12/04/24 TSH, (0.27-4.20) 2.83 uIU/mL 06/17/25 Glucose 1 Hr 50 gm, (85-140) 127 mg/dL 05/08/25 Gest Glucose Tolerance mg/dL 03/13/25 Hemoglobin A1c, (4.0-6.0) 4.6 % 05/08/25 HCG, Qual, (Negative) Positive H 11/20/24 Urine Opiates Screen, (Negative) Negative ng/mL 12/04/24 Ur Barbiturates Screen, (Negative) Negative ng/mL 12/04/24 Ur Phencyclidine Scrn, (Negative) Negative ng/mL 12/04/24 Ur Amphetamines Screen, (Negative) Negative ng/mL 12/04/24 U Benzodiazepines Scrn, (Negative) Negative ng/mL 12/04/24 Urine Cocaine Screen, (Negative) Negative ng/mL 12/04/24 U Marijuana (THC) Screen, (Negative) Negative ng/mL 12/04/24 Micro Urine Specimen 04/25/25 Pap Smear Interpret See note 12/20/24 Discharge Plan Discharge Patient Disposition: Home Condition: Stable Prescriptions: New docusate sodium [Colace] 100 mg capsule 100 mg PO BID Qty: 60 3RF bisacodyl [Dulcolax (bisacodyl)] 10 mg suppository 10 mg AR DAILY PRN (Reason: constipation) Qty: 12 1RF Continued omeprazole 20 mg capsule,delayed release(DR/EC) 40 mg PO DAILY Qty: 60 3RF Discharge Order = DC NOW: Discharge Order (Routine); Ordered 06/26/25 Ordered By: Nacho Willis Referrals: Mary Strauss, PROJECT ASSOCIATE [Nurse Practitioner, MANAGER FORENSIC] - 08/06/25 8:00 am Discharge Diet: Usual diet Discharge Activity: Increase activity as tolerated Patient Instructions: Laxative, Stool Softeners (By mouth) (Doculax, Colace, Colace Clear, DSS), Jaundice in Newborns (DC), Lay Person CPR on Newborns (DC), Your 's Appearance (DC), Safe Sleeping for Infants (DC), OB Discharge Report, OB Feeding Plan, OB Care at Home, Opioid Safety, OB Home Care, OB Vaginal Deliveries - [facility], Patient Portal & [facility]o Instructions Activity Restrictions/Additional Instructions: encouraged iron 1-2 tabs / day eat iron- and protein-rich foods call or go to ER if dizziness, weakness, chest pain, palpitations, shortness of breath Discharge Attestations MANAGER FORENSIC Time Spent in Discharge Care*: less than 30 min Coding Level of Care Code Acute Code for Chg Fwd Diagnoses Vaginal delivery O80
== END 2025-06-26 13:00 | disposition home or self-care (01) | DRG 807 ==
LOC: OPOB 02:42 → OBGYN 02:42
PROVIDERS: Admitting Provider Obstetrics & Gynecology; Visit Provider Obstetrics & Gynecology
DX: O99.334 Smoking (tobacco) complicating childbirth (principal); Z37.0 Single live birth; F17.210 Nicotine dependence, cigarettes, uncomplicated; Z3A.39 39 weeks gestation of pregnancy
CPT/HCPCS: 36415; 59025; 59409; 85007; 85025; 85027; 86850; 86900; 99211; J2590; J7120; J7121; J9999

== ENCOUNTER 2025-10-13 09:47 | Outpatient (CLI) | payer MEDICAID, SELFPAY ==
--- NOTE | 2025-10-13 11:00 | US_ITS ---
WS: [id number] RIGHT UPPER QUADRANT ULTRASOUND HISTORY: cholelithiasis COMPARISON: 06/09/2023 Liver: 16.9 cm in length. Normal size liver. Focal area of increased echogenicity near the gallbladder fossa is probably an area of steatosis. Area measures 3.1 x 2.6 x 3.5 cm. No increased vascularity. Portal Vein: Normal hepatopetal flow with monophasic waveform. Gallbladder: Normally distended gallbladder with stones. No wall thickening or pericholecystic fluid. Several stones are identified. Stone burden has increased since the ultrasound of 06/09/2023. CBD: 0.4 cm Pancreas: Normal size and echogenicity. Right kidney: 10.7 cm in length. Normal size and echogenicity. No hydronephrosis or mass. Aorta and IVC: Unremarkable abdominal aorta and IVC. No ascites. US/US gall bladder [id number] IMPRESSION: 1. Cholelithiasis. Numerous stones present in the gallbladder with no gallblad nataliia wall thickening or pericholecystic fluid. Stone burden has increased since 06/09/2023. 2. Hyperechoic liver focus near the gallbladder fossa, favor focal steatosis.
== END 2025-10-13 09:48 | disposition home or self-care (01) ==
LOC: RAD 09:48
PROVIDERS: Visit Provider Surgery
DX: K80.20 Calculus of gallbladder without cholecystitis without obstruction (principal); K76.89 Other specified diseases of liver
CPT/HCPCS: 76705